=== PATIENT | male | born 1985 | race African-American/Black ===

== ENCOUNTER 2017-07-28 20:19 | Emergency (ER) | payer MEDICARE, MEDICAID, SELFPAY ==
[2017-07-28 20:27] VITALS: BP 143/84; PULSE 78; RESP 16; TEMP 36.7; O2SAT 98; BMI 39.5
--- NOTE | 2017-07-28 20:56 | DI.RAD.S_ITS ---
PROCEDURE: XR CHEST 2V INDICATIONS: left lower anterior chest pain TECHNIQUE: 2 views of the chest were acquired. COMPARISON: [facility], CHEST 2 VIEW, 04/26/2013, 6:03. [facility], , CHEST FOR PICC PLACEMENT, 06/20/2012, 17:03. FINDINGS: Surgical changes and devices: None. Lungs and pleura: Trace pleural effusions. No pneumothorax. Lungs are clear. Mediastinum: Mediastinal contours are normal. Heart size is normal. Bones and chest wall: No suspicious bony abnormalities. Soft tissues appear unremarkable. IMPRESSION: Trace pleural effusions. Otherwise, no radiographic evidence of acute cardiopulmonary pathology. Dictated by: Andres Huston M.D. on 07/28/2017 at 21:57 Approved by: Andres Huston M.D. on 07/28/2017 at 21:58
[2017-07-28 21:14] LABS: Add Manual Diff / Slide Review NO; Basophils Percent Auto 0.9 % (0-2); Eosinophils Percent Auto 1.3 % (2-4); Hematocrit 41.1 % (41-53); Lymphocytes Percent Auto 33.3 % (25-40); Mean Corpuscular Hemoglobin 31.9 PG (26-34); Mean Corpuscular Volume 93.7 fL (80-100); Monocytes Percent Auto 7.5 % (3-14); Neutrophils Absolute Auto 3900 /uL (3000-5900); Platelet Count 263 X10^3/uL (150-400); Red Blood Cell Count 4.39 X10^6/uL (4.5-5.9); White Blood Cell Count 6.9 X10^3/uL (4.5-11.0)
[2017-07-28 21:25] LABS: D Dimer 242 ng/mL (<231)
[2017-07-28 21:27] LABS: Alanine Aminotransferase 31 IU/L (21-72); Albumin 3.8 g/dL (3.5-5.0); Albumin Globulin Ratio 1.1 (1.0-2.8); Alkaline Phosphatase 62 U/L (38-126); Aspartate Aminotransferase 29 IU/L (17-59); BUN Creatinine Ratio 21.4 (6-22); Bilirubin Total 0.5 mg/dL (0.2-1.3); Calcium 8.6 mg/dL (8.4-10.2); Estimated Glomerular Filt Rate > 60.0 mL/min (>60); Globulin 3.4 g/dL (1.7-4.1); Glucose 96 mg/dL (70-100); HEMOLYSIS 16 (0-50); Lipase 206 U/L (23-300); Potassium 3.9 mmol/L (3.4-5.1); Sodium 140 mmol/L (137-145); Total Protein 7.2 g/dL (6.3-8.2)
--- NOTE | 2017-07-28 21:34 | DI.CT.S_ITS ---
PROCEDURE: CT ANGIO CHEST PE PROTOCOL INDICATIONS: left lower chest pain with elevated d-dimer and right lower extremity in splint TECHNIQUE: After the administration of intravenous contrast, 2 mm thick sections acquired from the pulmonary apices to the posterior costophrenic angles. 3-dimensional maximum intensity projection (MIP) coronal and sagittal reformats were then acquired through the thorax. For radiation dose reduction, the following was used: automated exposure control, adjustment of mA and/or kV according to patient size. COMPARISON: None. FINDINGS: Image quality: Excellent. Pulmonary arteries: Pulmonary arteries are normal in size, and demonstrate no intraluminal filling defects to suggest central pulmonary embolism. Lungs and pleura: No acute consolidation however patchy and ill-defined left perihilar and lower lobe opacities are present with groundglass appearance. Presumed calcified granuloma in the anterolateral left upper lobe. Mediastinum: Heart size is normal, and there is a mild pericardial effusion. There are shotty mediastinal lymph nodes without pathologic mediastinal or hilar adenopathy. Thoracic aorta is normal in caliber and enhancement. Esophagus is normal in caliber, without hiatal hernia. Bones and chest wall: No suspicious bony lesions. Ribs and thoracic spine appear intact throughout. Thyroid gland unremarkable. No axillary or supraclavicular adenopathy. Abdomen: Visualized upper abdominal solid organs appear normal in the early arterial phase of enhancement. Postsurgical changes at the GE junction. IMPRESSION: No evidence of pulmonary embolism. Patchy ill-defined nodular and groundglass opacities involving the left perihilar and left lower lobe region probably reflective of low-grade bronchopneumonia. Small pericardial effusion. Recommend clinical correlation Dictated by: Quincy Levin M.D. on 07/29/2017 at 7:30 Approved by: Quincy Levin M.D. on 07/29/2017 at 7:39
[2017-07-28 21:43] LABS: Troponin I < 0.012 ng/mL (0.01-0.034)
[2017-07-28 22:02] VITALS: BP 110/65; PULSE 59; RESP 15; O2SAT 99
[2017-07-28 23:27] VITALS: BP 98/65; PULSE 58; RESP 14; O2SAT 100
--- NOTE | 2017-07-29 01:37 | ED_ITS ---
HPI - Abdominal Pain General Chief Complaint: Abdominal Pain Stated Complaint: ABDOMINAL PAIN, DIFFICULTY BREATHING Time Seen by Provider: 07/28/17 20:21 History of Present Illness HPI narrative: HPI 32-year-old male with 4 days of afebrile mildly productive cough presents with left lower anterior chest pain is worsened with palpation and deep inspiration; recent history notable for a right foot fracture in a walking boot. Denies ankle or calf swelling, calf pain, or shortness breath. Patient notes continues taking ibuprofen for his foot fracture, denies burning epigastric pain. Currently asymptomatic except when twisting or taking a deep breath. Patient denies recent immobilization, leg trauma, estrogen use, surgery in the last four weeks, hemoptysis, or malignancy in the last 6 months. M/S/F/SocHx notable for: gastric bypass; remainder reviewed with patient and in chart. ROS: Negative constitutional, eye, cardiovascular, pulmonary, GI, , MSK, skin , neurologic, psychiatric, endocrine unless noted in the HPI. Exam Gen: Pleasant, non-toxic appearing, resting comfortably. HEENT: NC, AT, PEERL, EOMI. Resp: Clear to auscultation bilaterally, normal work of breathing. Card: RRR with no M/R/G, no crackles in lung bases, no pedal edema, no JVD appreciated. GI: NT/ND Vascular: Both ankles, calves, and thighs of equal size, no calf tenderness to palpation bilaterally. MSK: Mild chest wall TTP. RLE and a walking boot. Otherwise, no visible deformities, strength and tone WNL. Skin: Normal color with no visible lesions. Neuro: AO x 3, no facial asymmetry, vision and hearing WNL. Psych: Mood and affect appropriate. Labs / Imaging (pertinent): WBC 6.9, Hb 14.0, Na 140, K 3.9, lipase 286. Troponin < 0.012 d-dimer 242 EKG: SR at 64 bpm, no MI segment depressions, no new ST segment changes, new LBBB, or T-wave changes that would suggest acute ischemia. CXR: trace pleural effusion. Otherwise no radiographic evidence of acute cardiopulmonary pathology. CTA chest: no evidence of pulmonary embolism or aortic aneurysm or dissection. Multifocal small ill-defined opacities in the medial left upper and lower lobe, suspicious for mild acute pneumonitis. Subcentimeter small nodule in superior segment left lower lobe is probably small nodule infiltrate. No focal complement of your infiltrate. Old granulomatous disease. Gastric bypass. MDM Previous chart, nursing note, and vitals reviewed. A: 32-year-old male with 4 days of afebrile mildly productive cough presents with left lower anterior chest pain is worsened with palpation and deep inspiration; recent history notable for a right foot fracture in a walking boot. DDx and Evaluation: strongly suspect Costocondritis (given reproducibility of pain at the costochondral margin) as well as a viral pneumonitis, vitals, duration symptoms, and labs are without evidence of a bacterial pneumonia. Recommend PCP follow-up in 48 hours for repeat evaluation. Return to care precautions provided. Also considered and felt to be excluded: * ACS - doubt ACS given a non-ischemic EKG and a negative troponin greater than six hours from maximal symptom onset. * UA - unlikely given the atypical history and alternate diagnosis. * Pericarditis - consider pericarditis unlikely given the lack of MI segment depressions as well as the absence of diffuse ST-segment elevations, lack of reduction of pain when supine, and lack of a friction rub. * Myocarditis - unlikely given the negative troponin and an EKG without characteristic MI-segment or ST-segment changes. * Dissection -no evidence by imaging. * PE - no evidence by imaging. * Mediastinal Air - no evidence by imaging. * Pneumothorax - no evidence by imaging. * Endocarditis - no identifiable risk factors, patient afebrile, no new murmurs appreciated on exam; doubt. Disposition: Discharge with PCP follow up. Return to care precautions given verbally and in writing. Instructed to use NSAIDs for pain control. Impression: pneumonitis, costocondritis (please reference below for remainder of encounter information) Related Data Previous Rx's Medication Instructions Recorded Disabled Parking Permit dev #1 11/08/16 azithromycin 250 mg tablet 250 mg PO DAILY 5 Days #6 tab 07/25/17 benzonatate 100 mg capsule 100 mg PO TID PRN #30 cap 07/25/17 Allergies Allergy/AdvReac Type Severity Reaction Status Date / Time banana [BANANA] Allergy Severe DIFFICULTY Verified 07/28/17 20:30 BREATHING Cephalosporins Allergy Severe STOPPED Verified 07/28/17 20:30 [CEPHALOSPORINS] BREATHING NSAIDS (Non-Steroidal AdvReac Severe Has had Verified 07/28/17 20:30 Anti-Inflamma Bariatric [NSAIDS (NON-STEROIDAL Surgery ANTI-INFLAMMA] PFSH Social History Smoking Status: Former smoker Exam Initial Vital Signs Initial Vital Signs: Vital Signs Temperature 98.1 F 07/28/17 20:27 Pulse Rate 78 07/28/17 20:27 Respiratory Rate 16 07/28/17 20:27 Blood Pressure 143/84 H 07/28/17 20:27 Pulse Oximetry 98 07/28/17 20:27 Course Orders Ordered: ED Orders 07/28/17 20:56 XR chest 2V Stat EKG-12 Lead Stat 07/28/17 21:05 Complete Blood Count AUTO DIFF Stat Comprehensive Metabolic Panel Stat D Dimer Stat Lipase Stat Troponin I Stat 07/28/17 21:34 CT angio chest PE protocol Stat Vital Signs - 8 hr 07/28/17 20:27 07/28/17 22:02 07/28/17 23:27 Temperature 98.1 F Pulse Rate 78 59 L 58 L Respiratory Rate 16 15 14 Blood Pressure 143/84 H Blood Pressure [Right Arm] 110/65 98/65 Pulse Oximetry 98 99 100 MDM - Abdominal Pain Lab Data Result diagrams: 07/28/17 21:05 07/28/17 21:05 Lab Results 07/28/17 07/28/17 07/28/17 Range/Units 21:05 21:05 21:05 WBC 6.9 (4.5-11.0) X10^3/uL RBC 4.39 L (4.5-5.9) X10^6/uL Hgb 14.0 (13.5-17.5) g/dL Hct 41.1 (41-53) % MCV 93.7 (80-100) fL MCH 31.9 (26-34) PG MCHC 34.0 (30-36) % RDW 15.0 H (11.6-14.8) % Plt Count 263 (150-400) X10^3/uL Neut % (Auto) 57.0 (50-75) % Lymph % (Auto) 33.3 (25-40) % [place] % (Auto) 7.5 (3-14) % Eos % (Auto) 1.3 L (2-4) % Baso % (Auto) 0.9 (0-2) % Neut # (Auto) 3900 (1381-8378) /uL D-Dimer 242 H (<231) ng/mL Sodium 140 (137-145) mmol/L Potassium 3.9 (3.4-5.1) mmol/L Chloride 103.0 (98-107) mmol/L Carbon Dioxide 26.0 (22-32) mmol/L BUN 15.0 (9-20) mg/dL Creatinine 0.70 (0.66-1.25) mg/dL Estimated GFR > 60.0 (>60) mL/min BUN/Creatinine Ratio 21.4 (6-22) Glucose 96 (70-100) mg/dL Calcium 8.6 (8.4-10.2) mg/dL Total Bilirubin 0.5 (0.2-1.3) mg/dL AST 29 (17-59) IU/L ALT 31 (21-72) IU/L Alkaline Phosphatase 62 (38-126) U/L Troponin I < 0.012 (0.01-0.034) ng/mL Total Protein 7.2 (6.3-8.2) g/dL Albumin 3.8 (3.5-5.0) g/dL Globulin 3.4 (1.7-4.1) g/dL Albumin/Globulin Ratio 1.1 (1.0-2.8) Lipase 206 (23-300) U/L Discharge Plan Departure Prescriptions: No Action azithromycin [Zithromax] 250 mg tablet 250 mg PO DAILY 5 Days Qty: 6 RF: 0 benzonatate [Tessalon Perles] 100 mg capsule 100 mg PO TID PRN (Reason: cough) Qty: 30 RF: 0 Disabled Parking Permit Qty: 1 RF: 0
[2017-07-29 01:53] VITALS: BP 134/80; PULSE 65; RESP 18
[2017-07-29 01:54] VITALS: BP 134/80; PULSE 61; RESP 15; O2SAT 99
== END 2017-07-29 01:55 | disposition home or self-care (01) ==
PROVIDERS: Emergency Provider Emergency Medicine; Family Provider Physician Assistant; PCP Physician Assistant
DX: J18.9 Pneumonia, unspecified organism (principal); M94.0 Chondrocostal junction syndrome [Tietze]
CPT/HCPCS: 71046; 71275; 80053; 83690; 84484; 85025; 85379; 93005; 99283; 99285; Q9967

== ENCOUNTER → 2017-08-30 10:13 | Outpatient (CLI) | payer MEDICARE, MEDICAID, SELFPAY ==
[2017-08-30 11:39] LABS: Thyroid Stimulating Hormone 1.49 uIU/mL (0.47-4.68)
[2017-08-30 11:59] LABS: Vitamin B12 341 pg/mL (239-931)
[2017-09-02 18:44] LABS: 1 25 Dihydroxy Vitamin D 44 pg/mL (18-72)
[2017-09-03 06:53] LABS: Albumin 4.2 g/dL (3.6-5.1); Sex Hormone Binding Globulin 48 nmol/L (10-50); Testosterone, Bioavailable 114.2 ng/dL (110.0-575.0); Testosterone, Total 587 ng/dL (250-1100); Testosterone,Free 59.3 pg/mL (46.0-224.0)
== END ==
PROVIDERS: PCP Physician Assistant; Visit Provider Physician Assistant
DX: N52.9 Male erectile dysfunction, unspecified (principal); Z98.84 Bariatric surgery status; S92.25 Fracture of navicular [scaphoid] of foot; M87.9 Osteonecrosis, unspecified; E66.9 Obesity, unspecified; E55.9 Vitamin D deficiency, unspecified
CPT/HCPCS: 82040; 82607; 82652; 84270; 84403; 84443

== ENCOUNTER 2017-12-13 05:46 | Emergency (ER) | payer MEDICARE, MEDICAID, SELFPAY ==
[2017-12-13 06:02] VITALS: BP 149/87; PULSE 62; RESP 18; TEMP 36.7; O2SAT 100; BMI 39.5
--- NOTE | 2017-12-13 06:24 | ED_ITS ---
HPI - Abdominal Pain General Chief Complaint: Abdominal Pain Stated Complaint: severe pain lower right stomach area Time Seen by Provider: 12/13/17 05:55 Source: patient Mode of arrival: ambulatory Limitations: no limitations History of Present Illness HPI narrative: This is a 32-year-old male who comes to the emergency department with complaint of right lower abdominal pain. Patient states it started yesterday. He states that it pre would rather suddenly very severe and sharp. It was a 10/10 but has since abated. He dressed scribe's it is waxing and waning in intensity. He denies any flank or back pain. He states the pain is all in the front of the abdomen. He is not able to reproduce it with palpation. Patient states that when the pain was at its worst he was dry heaving, he does not feel nauseated any more. He denies any fevers. He denies any diarrhea or constipation and states he is having normal bowel movements. He has not had any new urinary issues. He does have a history significant for gastric sleeve. Related Data Home Medications Medication Instructions Recorded Confirmed Calcium See Label Instructions .ROUTE 11/03/17 11/03/17 .COMPLEX Hydrochlorothiazide See Label Instructions .ROUTE 11/03/17 11/03/17 .COMPLEX Metamucil See Label Instructions .ROUTE 11/03/17 11/03/17 .COMPLEX Multivitamin See Label Instructions .ROUTE 11/03/17 11/03/17 .COMPLEX Potassium Chloride See Label Instructions .ROUTE 11/03/17 11/03/17 .COMPLEX Therapy Dog See Label Instructions .ROUTE 11/03/17 11/03/17 .COMPLEX Tums 750 mg See Label Instructions .ROUTE 11/03/17 11/03/17 .COMPLEX Vitamin B-12 See Label Instructions .ROUTE 11/03/17 11/03/17 .COMPLEX Vitamin D3 See Label Instructions .ROUTE 11/03/17 11/03/17 .COMPLEX Voltaren Gel 1% See Label Instructions .ROUTE 11/03/17 11/03/17 .COMPLEX Zyrtec See Label Instructions .ROUTE 11/03/17 11/03/17 .COMPLEX Previous Rx's Medication Instructions Recorded Disabled Parking Permit #1 ea 11/02/17 ibuprofen 800 mg tablet 800 mg PO BEDTIME #30 tab 11/21/17 omeprazole 20 mg capsule,delayed 20 mg PO DAILY #60 cap 12/06/17 release clindamycin phosphate 1 % topical 1 applictn TOP BID #240 ml 12/13/17 solution hydrocodone-acetaminophen 1 tab PO Q6H PRN #10 tab 12/13/17 ondansetron [Zofran ODT] 4 mg PO Q6H PRN #14 tab 12/13/17 Allergies Allergy/AdvReac Type Severity Reaction Status Date / Time banana [BANANA] Allergy Severe DIFFICULTY Verified 11/02/17 11:12 BREATHING Cephalosporins Allergy Severe STOPPED Verified 11/02/17 11:12 [CEPHALOSPORINS] BREATHING NSAIDS (Non-Steroidal AdvReac Severe Has had Verified 11/02/17 11:12 Anti-Inflamma Bariatric [NSAIDS (NON-STEROIDAL Surgery ANTI-INFLAMMA] Review of Systems Review of Systems All systems reviewed & are unremarkable except as noted in HPI and below Constitutional Denies fever(s) and Denies night sweats Cardiovascular Denies chest pain, Denies irregular heart rhythm, Denies lightheadedness, Denies palpitations, Denies dyspnea, Denies dyspnea on exertion and Denies orthopnea Respiratory Denies cough, Denies dyspnea, Denies dyspnea on exertion and Denies wheezing Gastrointestinal Gastrointestinal: Reports abdominal pain (Right lower quadrant), Denies change in bowel habits, Denies constipation, Denies diarrhea, Denies nausea and Denies vomiting Genitourinary Denies hematuria, Denies flank pain, Denies urinary incontinence and Denies urinary urgency Musculoskeletal Denies back pain Endocrine Denies palpitations Allergic/Immunologic Denies wheezing PFSH Medical History Hypertension (Chronic Unknown) Knee pain, left (Chronic Unknown) Sleep apnea (Chronic Unknown) Vitamin D deficiency (Chronic Unknown) Surgical History History of gastric bypass Social History Smoking Status: Former smoker Tobacco: How many years used: 1 second hand exposure: No alcohol intake: current (Once a week maybe) substance use type: does not use Exam Initial Vital Signs Initial Vital Signs: Vital Signs Temperature 98.1 F 12/13/17 06:02 Pulse Rate 62 12/13/17 06:02 Respiratory Rate 18 12/13/17 06:02 Blood Pressure 149/87 H 12/13/17 06:02 Pulse Oximetry 100 12/13/17 06:02 GENERAL: Alert and oriented x three, well nourished, well-appearing male in mild distress. HEENT: Head normocephalic, atraumatic, EOMI, pupils reactive, face symmetric, moist mucous membranes NECK: Supple, full range of motion CARDIOVASCULAR: Regular rate and rhythm without murmurs, rubs or gallops. RESPIRATORY: Breath sounds equal bilaterally, no wheezes rales or rhonchi. ABDOMEN: Soft, nontender. Normoactive bowel sounds all 4 quadrants. No guarding or rebound, rigidity, no mass. Patient has excess skin at pannus. : No CVA tenderness EXTREMITIES: Normal range of motion, no clubbing or edema. Neurovascularly intact NEUROLOGICAL: Cranial nerves II through XII grossly intact. Moving all extremities SKIN: Warm, dry, no petechiae, no rashes or lesions. Course Orders Ordered: Discontinued Medications Sodium Chloride (Normal Saline 0.9%) 1,000 mls @ 1,000 mls/hr IV BOLUS ONE Stop: 12/13/17 07:08 Last Infusion: 12/13/17 07:29 Dose: 0 mls/hr Admin: 12/13/17 06:25 Dose: 1,000 mls/hr Vital Signs - 8 hr 12/13/17 06:02 Temperature 98.1 F Pulse Rate 62 Respiratory Rate 18 Blood Pressure 149/87 H Pulse Oximetry 100 MDM - Abdominal Pain Differential Diagnosis Differential diagnosis: Likely abdominal pain, acute appendicitis, calculus of kidney, constipation, diverticulitis and other Lab Data Result diagrams: 12/13/17 06:15 12/13/17 06:15 Lab Results 12/13/17 12/13/17 Range/Units 06:15 06:15 WBC 4.7 (4.5-11.0) X10^3/uL RBC 4.12 L (4.5-5.9) X10^6/uL Hgb 13.7 (13.5-17.5) g/dL Hct 39.9 L (41-53) % MCV 96.8 (80-100) fL MCH 33.2 (26-34) PG MCHC 34.3 (30-36) % RDW 14.2 (11.6-14.8) % Plt Count 274 (150-400) X10^3/uL Neut % (Auto) 57.1 (50-75) % Lymph % (Auto) 29.6 (25-40) % [place] % (Auto) 9.0 (3-14) % Eos % (Auto) 3.7 (2-4) % Baso % (Auto) 0.6 (0-2) % Neut # (Auto) 2700 L (5638-2252) /uL Sodium 140 (137-145) mmol/L Potassium 3.6 (3.4-5.1) mmol/L Chloride 103 (98-107) mmol/L Carbon Dioxide 30 (22-32) mmol/L BUN 17 (9-20) mg/dL Creatinine 0.80 (0.66-1.25) mg/dL Estimated GFR > 60.0 (>60) mL/min BUN/Creatinine Ratio 21.3 (6-22) Glucose 86 (70-100) mg/dL Calcium 8.5 (8.4-10.2) mg/dL Total Bilirubin 0.8 (0.2-1.3) mg/dL AST 43 (17-59) IU/L ALT 23 (21-72) IU/L Alkaline Phosphatase 59 (38-126) U/L Total Protein 7.0 (6.3-8.2) g/dL Albumin 3.8 (3.5-5.0) g/dL Globulin 3.2 (1.7-4.1) g/dL Albumin/Globulin Ratio 1.2 (1.0-2.8) Lipase 104 (23-300) U/L Point of care testing: Urine Dip Bedside Urine Glucose Negative Bedside Urine Bilirubin - Negative Bedside Urine Ketone - Negative Urine Specific [place] 1.015 Bedside Urine Occult Blood - Negative Bedside Urine pH 6.0 Bedside Urine Protein - Negative Bedside Urine Urobilinogen - Negative Bedside Urine Nitrite - Negative Bedside Urine Leukocytes - Negative Esterase MDM Narrative Medical decision making narrative: Labs and imaging pending, patient signed out to Dr. Mckoen. Discharge Plan Departure Patient Disposition: Home Clinical Impression: Abdominal pain Discharge Date/Time: 12/13/17 10:00 Interventions: ED Discharge Assessment Last Done: 12/13/17 10:00 Instructions: DI for Abdominal Pain-Adult, DI for Biliary Colic Activity Restrictions/Additional Instructions: Your CT scan showed gallstones, but otherwise looked good. Your labs were normal. Your gallstones are most likely the cause your pain, and you should follow-up with the surgery Clinic for further evaluation, and to discuss your options. Prescriptions: New hydrocodone-acetaminophen 5-325 mg tablet 1 tab PO Q6H PRN (Reason: abdominal pain) Qty: 10 RF: 0 ondansetron [Zofran ODT] 4 mg tablet,disintegrating 4 mg PO Q6H PRN (Reason: nausea and vomiting) Qty: 14 RF: 0 No Action Disabled Parking Permit .Route .MEDSUPPLY Qty: 1 RF: 0 Vitamin B-12 See Patient Comments .ROUTE .COMPLEX RF: 0 Vitamin D3 See Patient Comments .ROUTE .COMPLEX RF: 0 Calcium See Patient Comments .ROUTE .COMPLEX RF: 0 Tums 750 mg See Patient Comments .ROUTE .COMPLEX RF: 0 Zyrtec See Patient Comments .ROUTE .COMPLEX RF: 0 Voltaren Gel 1% See Patient Comments .ROUTE .COMPLEX RF: 0 Hydrochlorothiazide See Patient Comments .ROUTE .COMPLEX RF: 0 Multivitamin See Patient Comments .ROUTE .COMPLEX RF: 0 Potassium Chloride See Patient Comments .ROUTE .COMPLEX RF: 0 Therapy Dog See Patient Comments .ROUTE .COMPLEX RF: 0 Metamucil See Patient Comments .ROUTE .COMPLEX RF: 0 ibuprofen 800 mg tablet 800 mg PO BEDTIME Qty: 30 RF: 3 omeprazole 20 mg capsule,delayed release(DR/EC) 20 mg PO DAILY Qty: 60 RF: 3 clindamycin phosphate 1 % solution 1 applictn TOP BID Qty: 240 RF: 3 Referrals: [facility] [Provider Group] ( Please follow up within the next week to have further evaluation of your gallstones.) Vivien Moralez PA-C [Primary Care Provider] -
[2017-12-13] MEDS: SODIUM CHLORIDE 0.9% 1,000 ML 1000 ML IV (06:25)
[2017-12-13 06:34] LABS: Add Manual Diff / Slide Review NO; Basophils Percent Auto 0.6 % (0-2); Eosinophils Percent Auto 3.7 % (2-4); Hematocrit 39.9 % (41-53); Hemoglobin 13.7 g/dL (13.5-17.5); Lymphocytes Percent Auto 29.6 % (25-40); Mean Corpuscular HGB Conc 34.3 % (30-36); Mean Corpuscular Hemoglobin 33.2 PG (26-34); Mean Corpuscular Volume 96.8 fL (80-100); Neutrophils Absolute Auto 2700 /uL (3000-5900); Neutrophils Percent Auto 57.1 % (50-75); Platelet Count 274 X10^3/uL (150-400); Red Blood Cell Count 4.12 X10^6/uL (4.5-5.9); Red Cell Distribution Width 14.2 % (11.6-14.8); White Blood Cell Count 4.7 X10^3/uL (4.5-11.0)
[2017-12-13 06:41] LABS: Alanine Aminotransferase 23 IU/L (21-72); Albumin 3.8 g/dL (3.5-5.0); Albumin Globulin Ratio 1.2 (1.0-2.8); Alkaline Phosphatase 59 U/L (38-126); Aspartate Aminotransferase 43 IU/L (17-59); BUN Creatinine Ratio 21.3 (6-22); Bilirubin Total 0.8 mg/dL (0.2-1.3); Blood Urea Nitrogen 17 mg/dL (9-20); Calcium 8.5 mg/dL (8.4-10.2); Carbon Dioxide 30 mmol/L (22-32); Chloride 103 mmol/L (98-107); Estimated Glomerular Filt Rate > 60.0 mL/min (>60); Globulin 3.2 g/dL (1.7-4.1); Glucose 86 mg/dL (70-100); HEMOLYSIS < 15 (0-50); Lipase 104 U/L (23-300); Potassium 3.6 mmol/L (3.4-5.1); Sodium 140 mmol/L (137-145)
[2017-12-13 07:18] VITALS: BP 155/92; PULSE 57; RESP 15; O2SAT 97
--- NOTE | 2017-12-13 07:29 | DI.CT.S_ITS ---
PROCEDURE: CT ABDOMEN PELVIS W CON INDICATIONS: RLQ abdominal pain, vomited, hx gastric sleeve TECHNIQUE: After the administration of intravenous contrast, 5 mm thick sections acquired from the diaphragm to the symphysis. 5 mm coronal and sagittal reformats were acquired. For radiation dose reduction, the following was used: automated exposure control, adjustment of mA and/or kV according to patient size. COMPARISON: [facility], CT, CT ANGIO CHEST PE PROTOCOL, 07/28/2017, 22:08. FINDINGS: Image quality: Excellent. ABDOMEN: Lung bases: Lung bases are clear. Heart size is normal. There is trace pericardial effusion. Tiny hiatal hernia. Solid organs: Liver is normal in size and demonstrates a subtle nodular contour. Gallbladder contains calcified gallstones. Biliary system is non dilated. Pancreas enhances normally. Spleen is normal in size and enhancement. No adrenal nodules. Kidneys demonstrate normal size and enhancement, without hydronephrosis. Peritoneum and bowel: The postsurgical changes in stomach with gastric bypass. Appendix is normal. Bowel loops demonstrate normal wall thickness and caliber. No free fluid or air. Nodes and vessels: No retroperitoneal or mesenteric adenopathy by size criteria. Aorta and inferior vena cava are normal in size. Miscellaneous: No ventral hernias. PELVIS: Genitourinary: Bladder wall thickness is normal. Miscellaneous: No inguinal hernias or adenopathy. Bones: No suspicious bony lesions. No vertebral body compression fractures. IMPRESSION: 1. Normal appendix. 2. Postsurgical changes related to gastric bypass. 3. Cholelithiasis. 4. Liver demonstrates a subtle nodular contour. Please correlate with liver enzymes. Dictated by: Susan Willoughby M.D. on 12/13/2017 at 8:20 Approved by: Susan Willoughby M.D. on 12/13/2017 at 8:26
[2017-12-13 08:47] VITALS: BP 159/99; PULSE 61; RESP 16; O2SAT 100
[2017-12-13 09:46] VITALS: BP 148/98; PULSE 67; RESP 18; O2SAT 100
--- NOTE | 2017-12-14 19:08 | ED_ITS ---
HPI - Abdominal Pain General Chief Complaint: Abdominal Pain Stated Complaint: severe pain lower right stomach area Time Seen by Provider: 12/13/17 05:55 Source: patient Mode of arrival: ambulatory Limitations: no limitations History of Present Illness HPI narrative: Patient complains of right-sided abdominal pain. He states that this current episode began in the middle of. He states he is feeling a little better but was quite bad when 1st started. He rates his pain at that time a 9/ 10; now he states it about a 4/10. Patient states he has had other episodes of pain like this but has not been as bad. He states that episodes have been lasting longer and longer lately. He denies fevers he has felt nauseated. He has also been having intermittent episodes of indigestion. Patient has a history of a gastric bypass surgery, but is otherwise healthy. MD complaint: abdominal pain Onset (ago): hour(s) Pain Consistency: constant Quality: stabbing Radiation: none Relieving factors: nothing Exacerbating factors: nothing Context: other (See above) Associated symptoms: nausea and other (No fever or chills, no dysuria.) Related Data Home Medications Medication Instructions Recorded Confirmed Calcium See Label Instructions .ROUTE 11/03/17 11/03/17 .COMPLEX Hydrochlorothiazide See Label Instructions .ROUTE 11/03/17 11/03/17 .COMPLEX Metamucil See Label Instructions .ROUTE 11/03/17 11/03/17 .COMPLEX Multivitamin See Label Instructions .ROUTE 11/03/17 11/03/17 .COMPLEX Potassium Chloride See Label Instructions .ROUTE 11/03/17 11/03/17 .COMPLEX Therapy Dog See Label Instructions .ROUTE 11/03/17 11/03/17 .COMPLEX Tums 750 mg See Label Instructions .ROUTE 11/03/17 11/03/17 .COMPLEX Vitamin B-12 See Label Instructions .ROUTE 11/03/17 11/03/17 .COMPLEX Vitamin D3 See Label Instructions .ROUTE 11/03/17 11/03/17 .COMPLEX Voltaren Gel 1% See Label Instructions .ROUTE 11/03/17 11/03/17 .COMPLEX Zyrtec See Label Instructions .ROUTE 11/03/17 11/03/17 .COMPLEX Previous Rx's Medication Instructions Recorded Disabled Parking Permit #1 ea 11/02/17 ibuprofen 800 mg tablet 800 mg PO BEDTIME #30 tab 11/21/17 omeprazole 20 mg capsule,delayed 20 mg PO DAILY #60 cap 12/06/17 release clindamycin phosphate 1 % topical 1 applictn TOP BID #240 ml 12/13/17 solution hydrocodone-acetaminophen 1 tab PO Q6H PRN #10 tab 12/13/17 ondansetron [Zofran ODT] 4 mg PO Q6H PRN #14 tab 12/13/17 Allergies Allergy/AdvReac Type Severity Reaction Status Date / Time banana [BANANA] Allergy Severe DIFFICULTY Verified 11/02/17 11:12 BREATHING Cephalosporins Allergy Severe STOPPED Verified 11/02/17 11:12 [CEPHALOSPORINS] BREATHING NSAIDS (Non-Steroidal AdvReac Severe Has had Verified 11/02/17 11:12 Anti-Inflamma Bariatric [NSAIDS (NON-STEROIDAL Surgery ANTI-INFLAMMA] Review of Systems Review of Systems All systems reviewed & are unremarkable except as noted in HPI and below Constitutional Denies chills, Denies fever(s), Denies lethargy and Denies weakness Eyes Denies change in vision, Denies eye discharge, Denies irritation and Denies loss of vision ENT Ears, Nose, Mouth, and Throat: Denies change in voice, Denies neck pain and Denies sore throat Cardiovascular Denies chest pain, Denies irregular heart rhythm, Denies lightheadedness, Denies palpitations, Denies dyspnea, Denies dyspnea on exertion and Denies orthopnea Respiratory Denies cough, Denies dyspnea, Denies dyspnea on exertion and Denies wheezing Gastrointestinal Gastrointestinal: Reports abdominal pain, Denies change in bowel habits, Denies diarrhea, Reports nausea and Denies vomiting Genitourinary Denies hematuria, Denies flank pain, Denies urinary incontinence and Denies urinary urgency Musculoskeletal Denies neck pain Integumentary/Breasts Denies pruritus, Denies erythema, Denies rash and Denies wounds Neurologic Denies confusion, Denies loss of vision and Denies weakness Psychiatric Denies anxiety, Denies confusion, Denies depression, Denies homicidal ideation and Denies suicidal ideation Endocrine Denies palpitations Hematologic/Lymphatic Denies easy bruising Allergic/Immunologic Denies wheezing PFSH Medical History Hypertension (Chronic Unknown) Knee pain, left (Chronic Unknown) Sleep apnea (Chronic Unknown) Vitamin D deficiency (Chronic Unknown) Surgical History History of gastric bypass Social History Smoking Status: Former smoker Tobacco: How many years used: 1 second hand exposure: No alcohol intake: current (Once a week maybe) substance use type: does not use Exam Initial Vital Signs Initial Vital Signs: Vital Signs Temperature 98.1 F 12/13/17 06:02 Pulse Rate 62 12/13/17 06:02 Respiratory Rate 18 12/13/17 06:02 Blood Pressure 149/87 H 12/13/17 06:02 Pulse Oximetry 100 12/13/17 06:02 Const General: cooperative and well developed Nutritional Appearance: well nourished Orientation: alert, awake, oriented x3 and not confused HENMT Head: normocephalic and atraumatic Ears: external ears normal Nose: external nose normal and No nasal discharge Face and sinus: face symmetric and No dry mucous membranes Mouth: oral mucosae normal and moist mucous membranes Teeth and gingiva: dentition normal Eyes General: appearance normal, both eyes and all related structures Eyelids: eyelids normal Conjunctivae: conjunctivae normal Sclera: sclerae normal Pupils: PERRL EOM: EOM intact bilaterally Neck Neck: normal visual inspection, trachea midline, No lymphadenopathy, No midline deformity and No JVD Lymphatic: No lymphedema Chest Chest: normal inspection of the chest Resp Effort & Inspection: normal respiratory effort, able to speak in complete sentences, no respiratory distress and no use of accessory muscles Auscultation: clear to auscultation bilaterally, no rales, no rhonchi and no wheezes Cardio Rate: regular rate Rhythm: regular rhythm Heart Sounds: no click, no gallops, no murmurs and no rubs Pulses: normal peripheral pulses GI Inspection: non-distended Palpation: soft, no hepatosplenomegaly, No guarding, No pulsatile mass and No tender Auscultation: normal bowel sounds Back/Spine/Pelvis Back: No CVA tenderness Cervical Spine: cervical ROM normal and No pain with cervical ROM Thoracic/Lumbar Spine: thoracic and lumbar spine normal to inspection Skin General: no rashes or lesions noted, No jaundice and No petechiae Neuro General: alert, oriented x3, gait normal and no focal motor deficits Speech: speech normal Extrem General: full ROM, no clubbing, cyanosis or edema, no pedal edema and no calf tenderness Psych Appearance: well kempt Mental Status: mental status grossly normal Attitude: cooperative Thought Content: normal and suicidality Judgment: judgment good Course Course Narrative: Patient was signed out to me by Dr. Rousseau at change of shift, pending labs and CT scan. He was treated symptomatically, and found to be feeling better. CT scan showed cholelithiasis, with no evidence of cholecystitis or choledocholithiasis. I did speak with the patient regarding the findings, and his need for surgical follow-up. I discussed with him that most likely, his bouts of pain are secondary to biliary colic. Patient states he will follow up. I have given him prescriptions for symptomatic treatment home. Orders Ordered: Discontinued Medications Sodium Chloride (Normal Saline 0.9%) 1,000 mls @ 1,000 mls/hr IV BOLUS ONE Stop: 12/13/17 07:08 Last Infusion: 12/13/17 07:29 Dose: 0 mls/hr Admin: 12/13/17 06:25 Dose: 1,000 mls/hr Vital Signs - 8 hr 12/13/17 06:02 12/13/17 07:18 12/13/17 08:47 Temperature 98.1 F Pulse Rate 62 57 L 61 Respiratory Rate 18 15 16 Blood Pressure 149/87 H Blood Pressure [Right Arm] 155/92 H 159/99 H Pulse Oximetry 100 97 100 MDM - Abdominal Pain Differential Diagnosis Differential diagnosis: Likely abdominal pain, acute appendicitis, calculus of kidney, constipation and diverticulitis Medical Records Attestation: I reviewed the patient's medical records. Lab Data Attestation: I reviewed the patient's lab results. Result diagrams: 12/13/17 06:15 12/13/17 06:15 Lab Results 12/13/17 12/13/17 Range/Units 06:15 06:15 WBC 4.7 (4.5-11.0) X10^3/uL RBC 4.12 L (4.5-5.9) X10^6/uL Hgb 13.7 (13.5-17.5) g/dL Hct 39.9 L (41-53) % MCV 96.8 (80-100) fL MCH 33.2 (26-34) PG MCHC 34.3 (30-36) % RDW 14.2 (11.6-14.8) % Plt Count 274 (150-400) X10^3/uL Neut % (Auto) 57.1 (50-75) % Lymph % (Auto) 29.6 (25-40) % Ross % (Auto) 9.0 (3-14) % Eos % (Auto) 3.7 (2-4) % Baso % (Auto) 0.6 (0-2) % Neut # (Auto) 2700 L (0303-3489) /uL Sodium 140 (137-145) mmol/L Potassium 3.6 (3.4-5.1) mmol/L Chloride 103 (98-107) mmol/L Carbon Dioxide 30 (22-32) mmol/L BUN 17 (9-20) mg/dL Creatinine 0.80 (0.66-1.25) mg/dL Estimated GFR > 60.0 (>60) mL/min BUN/Creatinine Ratio 21.3 (6-22) Glucose 86 (70-100) mg/dL Calcium 8.5 (8.4-10.2) mg/dL Total Bilirubin 0.8 (0.2-1.3) mg/dL AST 43 (17-59) IU/L ALT 23 (21-72) IU/L Alkaline Phosphatase 59 (38-126) U/L Total Protein 7.0 (6.3-8.2) g/dL Albumin 3.8 (3.5-5.0) g/dL Globulin 3.2 (1.7-4.1) g/dL Albumin/Globulin Ratio 1.2 (1.0-2.8) Lipase 104 (23-300) U/L Point of care testing: Urine Dip Bedside Urine Glucose Negative Bedside Urine Bilirubin - Negative Bedside Urine Ketone - Negative Urine Specific [place] 1.015 Bedside Urine Occult Blood - Negative Bedside Urine pH 6.0 Bedside Urine Protein - Negative Bedside Urine Urobilinogen - Negative Bedside Urine Nitrite - Negative Bedside Urine Leukocytes - Negative Esterase Imaging Data CT scan - abdomen: Attestation: I personally reviewed and interpreted this imaging study as follows: Radiologist's impression: PROCEDURE: CT ABDOMEN PELVIS W CON INDICATIONS: RLQ abdominal pain, vomited, hx gastric sleeve TECHNIQUE: After the administration of intravenous contrast, 5 mm thick sections acquired from the diaphragm to the symphysis. 5 mm coronal and sagittal reformats were acquired. For radiation dose reduction, the following was used: automated exposure control, adjustment of mA and/or kV according to patient size. COMPARISON: [facility], CT, CT ANGIO CHEST PE PROTOCOL, 07/28/2017, 22:08. FINDINGS: Image quality: Excellent. ABDOMEN: Lung bases: Lung bases are clear. Heart size is normal. There is trace pericardial effusion. Tiny hiatal hernia. Solid organs: Liver is normal in size and demonstrates a subtle nodular contour. Gallbladder contains calcified gallstones. Biliary system is non dilated. Pancreas enhances normally. Spleen is normal in size and enhancement. No adrenal nodules. Kidneys demonstrate normal size and enhancement, without hydronephrosis. Peritoneum and bowel: The postsurgical changes in stomach with gastric bypass. Appendix is normal. Bowel loops demonstrate normal wall thickness and caliber. No free fluid or air. Nodes and vessels: No retroperitoneal or mesenteric adenopathy by size criteria. Aorta and inferior vena cava are normal in size. Miscellaneous: No ventral hernias. PELVIS: Genitourinary: Bladder wall thickness is normal. Miscellaneous: No inguinal hernias or adenopathy. Bones: No suspicious bony lesions. No vertebral body compression fractures. IMPRESSION: 1. Normal appendix. 2. Postsurgical changes related to gastric bypass. 3. Cholelithiasis. 4. Liver demonstrates a subtle nodular contour. Please correlate with liver enzymes. Dictated by: Susan Willoughby M.D. on 12/13/2017 at 8:20 Approved by: Susan Willoughby M.D. on 12/13/2017 at 8:26 [facility] Narrative Medical decision making narrative: Patient was deemed stable for discharge home. We have discussed the usual indications for return, as well as symptomatic treatment at home. Discharge Plan Departure Patient Disposition: Home Clinical Impression: Abdominal pain Discharge Date/Time: 12/13/17 10:00 Interventions: ED Discharge Assessment Last Done: 12/13/17 10:00 Instructions: DI for Abdominal Pain-Adult, DI for Biliary Colic Activity Restrictions/Additional Instructions: Your CT scan showed gallstones, but otherwise looked good. Your labs were normal. Your gallstones are most likely the cause your pain, and you should follow-up with the surgery Clinic for further evaluation, and to discuss your options. Prescriptions: New hydrocodone-acetaminophen 5-325 mg tablet 1 tab PO Q6H PRN (Reason: abdominal pain) Qty: 10 RF: 0 ondansetron [Zofran ODT] 4 mg tablet,disintegrating 4 mg PO Q6H PRN (Reason: nausea and vomiting) Qty: 14 RF: 0 No Action Disabled Parking Permit .Route .MEDSUPPLY Qty: 1 RF: 0 Vitamin B-12 See Patient Comments .ROUTE .COMPLEX RF: 0 Vitamin D3 See Patient Comments .ROUTE .COMPLEX RF: 0 Calcium See Patient Comments .ROUTE .COMPLEX RF: 0 Tums 750 mg See Patient Comments .ROUTE .COMPLEX RF: 0 Zyrtec See Patient Comments .ROUTE .COMPLEX RF: 0 Voltaren Gel 1% See Patient Comments .ROUTE .COMPLEX RF: 0 Hydrochlorothiazide See Patient Comments .ROUTE .COMPLEX RF: 0 Multivitamin See Patient Comments .ROUTE .COMPLEX RF: 0 Potassium Chloride See Patient Comments .ROUTE .COMPLEX RF: 0 Therapy Dog See Patient Comments .ROUTE .COMPLEX RF: 0 Metamucil See Patient Comments .ROUTE .COMPLEX RF: 0 ibuprofen 800 mg tablet 800 mg PO BEDTIME Qty: 30 RF: 3 omeprazole 20 mg capsule,delayed release(DR/EC) 20 mg PO DAILY Qty: 60 RF: 3 clindamycin phosphate 1 % solution 1 applictn TOP BID Qty: 240 RF: 3 Referrals: [facility] [Provider Group] ( Please follow up within the next week to have further evaluation of your gallstones.) Vivien Moralez PA-C [Primary Care Provider] -
== END 2017-12-13 10:00 | disposition home or self-care (01) ==
PROVIDERS: Emergency Medicine; Emergency Provider Emergency Medicine; Family Provider Physician Assistant; PCP Physician Assistant
DX: R10.9 Unspecified abdominal pain (principal)
CPT/HCPCS: 36591; 74177; 80053; 81003; 83690; 85025; 96360; 99283; 99285; Q9967

== ENCOUNTER → 2018-05-08 18:08 | Outpatient (CLI) | payer MEDICARE, MEDICAID, SELFPAY ==
[2018-05-08 19:42] LABS: Influenza A and B by PCR Rapid Negative (Negative)
== END ==
PROVIDERS: Family Provider Physician Assistant; PCP Physician Assistant; Visit Provider Physician Assistant
DX: R68.89 Other general symptoms and signs (principal)
CPT/HCPCS: 87400

== ENCOUNTER → 2019-05-21 13:43 | Outpatient (CLI) | payer MEDICARE, OTHER, MEDICAID, SELFPAY ==
[2019-05-21 18:42] LABS: Adenovirus F 40/41 Not Detected (Not Detect); Astrovirus Not Detected (Not Detect); Campylobacter Not Detected (Not Detect); Clostridium difficile toxin AB Not Detected (Not Detect); Cryptosporidium Not Detected (Not Detect); Cyclospora cayetanensis Not Detected (Not Detect); Entamoeba histolytica Not Detected (Not Detect); Enteroaggregative E.coli Not Detected (Not Detect); Enteropathogenic E.coli Not Detected (Not Detect); Enterotoxigenic E.coli It/st Not Detected (Not Detect); Giardia lamblia Not Detected (Not Detect); Norovirus GI/GII Not Detected (Not Detect); Plesiomonsa shigelloides Not Detected (Not Detect); Rotavirus A Not Detected (Not Detect); Salmonella Not Detected (Not Detect); Sapovirus Not Detected (Not Detect); Shiga-like toxin-prod E.coli Not Detected (Not Detect); Shigella/Enteroinvasive E.coli Not Detected (Not Detect); Vibrio Not Detected (Not Detect); Vibrio cholerae Not Detected (Not Detect); Yersinia enterocolitica Not Detected (Not Detect)
== END ==
PROVIDERS: Family Provider Physician Assistant; PCP Physician Assistant; Referring Provider Physician Assistant; Visit Provider Physician Assistant
DX: R10.9 Unspecified abdominal pain (principal); R19.7 Diarrhea, unspecified
CPT/HCPCS: 87507

== ENCOUNTER → 2019-12-22 12:59 | Outpatient (CLI) | payer OTHER, MEDICARE, MEDICAID, SELFPAY ==
--- NOTE | 2019-12-22 | DI.MRI.S_ITS ---
PROCEDURE: MR KNEE LT WO CON INDICATIONS: internal derangement of left knee TECHNIQUE: Noncontrast sagittal PD fast spin echo and T2 fast spin echo with fat saturation, sagittal 3-D FLASH with fat saturation; coronal T1 spin echo and PD fast spin echo with fat saturation, and axial PD fast spin echo with fat saturation through the knee. COMPARISON: [facility], MR, KNEE WITHOUT CONTRAST, 06/18/2016, 10:40. FINDINGS: Image quality: Excellent. Menisci: Truncated appearance of body and posterior horn of medial meniscus suggestive of interval partial meniscectomy versus progression of chronic complex tear. There is signal abnormality within posterior horn medial meniscal remanent extending to both superior and inferior articulating surfaces. Complex tear involving body and posterior horn of lateral meniscus is also seen extending to both superior and inferior articulating surfaces. Peripheral displacement of medial meniscal remanent is seen The meniscal root ligaments appear intact. Cruciate ligaments: Poorly visualized anterior cruciate ligament is again noted suggestive of chronic ACL rupture not significantly changed from prior study. Posterior cruciate ligament is intact. Medial structures: Thickened medial collateral ligament is seen suggestive of moderate grade MCL sprain/partial-thickness tear. 2.2 x 1.1 centimeter complex cyst medial to the proximal medial collateral ligament is seen better defined on the current study compared to 2017 study. The posterior oblique ligament, semimembranosus tendon insertions, oblique popliteal ligament, and meniscocapsular junction appear intact. Visualized portions of the pes anserinus tendons appear normal. No abnormal bursal fluid. Lateral structures: The lateral collateral ligament, long and short heads of the biceps femoris tendon appear intact. The popliteus tendon appears normal; the popliteofibular ligament appears intact. The posterosuperior and anteroinferior popliteomeniscal fascicles appear intact. The arcuate and fabellofibular ligaments appear intact, on either side of the lateral inferior geniculate artery. Iliotibial band appears normal. Anterior structures: The quadriceps and patellar tendons appear intact. Patellar alignment is normal. No femoral trochlear dysplasia or ventral trochlear prominence. No edema in the infrapatellar fat pad. Bones and cartilage: Moderate tricompartmental osteoarthritis is seen more prominent in medial femoral tibial compartment. Chondromalacia in medial and lateral femoral tibial compartments are also seen. Low-grade chondromalacia involving medial facet of patella cartilage is also likely present. Joint space: There is moderate amount of joint fluid. No Nolen's cyst. Normal appearing synovial plicae are incidentally noted. IMPRESSION: 1. 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 PCL is intact. 2. Chronic complex tear involving medial meniscus versus prior partial meniscectomy. There is also suggestion of complex tear involving posterior horn remanent of medial meniscus extending to both superior and inferior articulating surfaces. 3. Suggestion of complex tear involving body and posterior horn of lateral meniscus extending to both superior and inferior articulating surfaces. 4. Moderate tricompartmental osteoarthritis and chondromalacia most prominent in medial femoral tibial compartment. 5. Chronic appearing moderate grade MCL sprain/partial-thickness tear. Adjacent soft tissue cystic area measures 2.2 x 1.1 cm slightly better defined compared to 2017 study. Dictated by: Jorgito Workman M.D. on 12/24/2019 at 8:44 Approved by: Jorgito Workman M.D. on 12/24/2019 at 9:04
== END ==
PROVIDERS: Family Provider Physician Assistant; PCP Physician Assistant; Referring Provider Physician Assistant; Visit Provider Physician Assistant
DX: M23.92 Unspecified internal derangement of left knee (principal); M17.11 Unilateral primary osteoarthritis, right knee; R26.89 Other abnormalities of gait and mobility; M94.262 Chondromalacia, left knee
CPT/HCPCS: 73721

== ENCOUNTER 2020-09-30 00:31 | Emergency (ER) | payer OTHER, MEDICARE, MEDICAID, SELFPAY ==
[2020-09-30 00:46] VITALS: BP 143/94; PULSE 77; RESP 16; TEMP 36; O2SAT 99; BMI 34.1
--- NOTE | 2020-09-30 02:26 | ED.BACK ---
HPI - Back Pain/Injury General Chief Complaint: Back Pain/Injury Stated Complaint: Severe back and leg pain on left side Time Seen by Provider: 09/30/20 02:25 Source: patient Limitations: no limitations History of Present Illness HPI Narrative: This is a 35-year-old male who comes emergency department complaint of 2 weeks low back pain which has min radiating into his left lower leg. Patient states the comes into his buttock, upper thigh and groin and down to the knee. Patient has also noticed some sensation change in that area as well. He denies any numbness. He denies any weakness. He denies any saddle anesthesia. Patient states he has been able to move his leg, both legs normally. Patient has not had similar symptoms in the past. He did not have any recent trauma or injuries. He denies any fevers. He states he has a history of bariatric surgery and takes hydrochlorothiazide for blood pressure. He does not take any other daily medications. He has seen his primary care soon Kirt who prescribed him gabapentin and he has been taking Tylenol and ibuprofen for pain. Patient states he came in this evening as he could get not get comfortable. He does had his 1st dose of gabapentin today and is prescribed 300 mg b.i.d. patient has not had any prior imaging. He denies any prior issues in the past. He does use tobacco, alcohol but denies any illicit or IV drug use. Related Data Home Medications Medication Instructions Recorded Confirmed Calcium See Rx Instructions .ROUTE .COMPLEX 11/03/17 05/25/19 Metamucil See Rx Instructions .ROUTE .COMPLEX 11/03/17 05/25/19 Multivitamin See Rx Instructions .ROUTE .COMPLEX 11/03/17 05/25/19 Therapy Dog See Rx Instructions .ROUTE .COMPLEX 11/03/17 05/25/19 Tums 750 mg See Rx Instructions .ROUTE .COMPLEX 11/03/17 05/25/19 Vitamin B-12 See Rx Instructions .ROUTE .COMPLEX 11/03/17 05/25/19 Vitamin D3 See Rx Instructions .ROUTE .COMPLEX 11/03/17 05/25/19 Voltaren Gel 1% See Rx Instructions .ROUTE .COMPLEX 11/03/17 05/25/19 Zyrtec See Rx Instructions .ROUTE .COMPLEX 11/03/17 05/25/19 Previous Rx's Medication Instructions Recorded ibuprofen 800 mg tablet 800 mg PO BID PRN #180 tab 01/15/19 potassium chloride 10 mEq 10 meq PO DAILY #90 cap 01/15/19 capsule,extended release ondansetron 4 mg disintegrating 4 mg PO BID PRN #10 tab 02/20/19 tablet hydrochlorothiazide 25 mg tablet 25 mg PO DAILY #30 tab 04/23/19 lisinopril 10 mg tablet 10 mg PO DAILY #30 tab 04/23/19 ropinirole 0.25 mg tablet 0.25 mg PO BEDTIME #108 tab 04/24/19 ondansetron 4 mg disintegrating 4 mg PO BID PRN #14 tab 05/15/19 tablet metronidazole 500 mg tablet 500 mg PO TID #30 tab 05/25/19 clindamycin phosphate 1 % topical 1 applictn TOP BID PRN #30 ml 11/07/19 solution Disabled Parking Permit #1 ea 12/04/19 omeprazole 20 mg capsule,delayed 20 mg PO BID PRN #60 cap 01/14/20 release prednisone 20 mg tablet 40 mg PO DAILY #10 tab 09/30/20 tramadol 50 mg tablet (Ultram) 50 mg PO Q6H PRN #10 tab 09/30/20 Allergies Allergy/AdvReac Type Severity Reaction Status Date / Time banana [BANANA] Allergy Severe DIFFICULTY Verified 05/25/19 09:03 BREATHING Cephalosporins Allergy Severe STOPPED Verified 05/25/19 09:03 [CEPHALOSPORINS] BREATHING NSAIDS (Non-Steroidal AdvReac Severe Has had Verified 05/25/19 09:03 Anti-Inflamma Bariatric [NSAIDS (NON-STEROIDAL Surgery ANTI-INFLAMMA] Review of Systems Review of Systems ROS Unobtainable: All systems reviewed & are unremarkable except as noted in HPI and below Patient History Medical History Abdominal pain Diarrhea Hypertension (Unknown) Knee pain, left (Unknown) Nausea Sleep apnea (Unknown) Vitamin D deficiency (Unknown) Surgical History History of gastric bypass Social History Smoking Status: Former smoker Tobacco: How many years used: 1 second hand exposure: No alcohol intake: current (Once a week maybe) substance use type: does not use Smoking Status: Former smoker alcohol intake frequency: 0-2 drinks per day Substance Use Type: does not use Exam Narrative Exam Narrative: GENERAL: Alert and oriented x three, male in mild distress. HEENT: Head normocephalic, atraumatic, EOMI, pupils reactive, face symmetric, moist mucous membranes NECK: Supple, full range of motion CARDIOVASCULAR: Regular rate and rhythm without murmurs, rubs or gallops. RESPIRATORY: Breath sounds equal bilaterally, no wheezes rales or rhonchi. ABDOMEN: Soft, nontender. Normoactive bowel sounds all 4 quadrants. No guarding or rebound, rigidity, no mass : No CVA tenderness BACK: No cervical, thoracic or lumbar vertebral point tenderness. Patient has normal range of motion. Patient's gait is normal. No saddle anesthesia.. Muscle strength is 5/5 in lower extremities. Dorsalis pedis and tibialis pulses are 2+ and lower extremities. Sensation is intact in the lower extremities. EXTREMITIES: Normal range of motion, no clubbing or edema. Neurovascularly intact NEUROLOGICAL: Cranial nerves II through XII grossly intact. Moving all extremities SKIN: Warm, dry, no petechiae, no rashes or lesions. Initial Vital Signs Initial Vital Signs: Vital Signs Temperature 96.8 F L 09/30/20 00:46 Pulse Rate 77 09/30/20 00:46 Respiratory Rate 16 09/30/20 00:46 Blood Pressure 143/94 H 09/30/20 00:46 Pulse Oximetry 99 09/30/20 00:46 Course Orders Ordered: ED Orders 09/30/20 03:00 XR lumbar spine 2-3V Stat Discontinued Medications Ketorolac Tromethamine (Ketorolac 30 Mg/Ml Vial) 30 mg IM NOW ONE Stop: 09/30/20 03:01 Last Admin: 09/30/20 03:05 Dose: 30 mg Documented by: DAVON Prednisone (Prednisone 20 Mg Tablet) 60 mg PO NOW ONE Stop: 09/30/20 03:01 Last Admin: 09/30/20 03:06 Dose: 60 mg Documented by: DAVON Reevaluation(s) Reevaluation #1: Patient was sleeping when I arrived in the room. He states he still has back pain but he is having some improvement. He would like to return home. Reviewed preliminary x-ray findings. I do not have the [facility] read and discussed that his T12 vertebra look like it may have compression fracture although this seems like a less likely source of his pain. He also has multiple arthritic changes. Vital Signs Vital signs: Vital Signs - 8 hr 09/30/20 00:46 09/30/20 04:22 Temperature 96.8 F L Pulse Rate 77 70 Respiratory Rate 16 18 Blood Pressure 143/94 H 132/81 Pulse Oximetry 99 100 MDM - Back Pain/Injury Imaging Data Lspine xray: Radiologist's Impression: scoliosis no acute process per rads. [facility] Narrative Medical decision making narrative: 35-year-old male comes with complaint of back pain and left lumbar radiculopathy. Patient does not have any red flag symptoms. X-ray imaging was obtained which does appear to show some osteophytic changes. Night rad read as negative but changes reviewed by myself were discussed with the patient. Patient was started on prednisone, continue his gabapentin. Given a short course of pain medication and received a dose of Toradol here in the department. Patient was able to rest and sleep in the department all questions were answered, red flag symptoms and return precautions discussed. Discharge Plan Departure Patient Disposition: Home Clinical Impression: Sciatica of left side Instructions: DI for Back Pain With Sciatica Activity Restrictions/Additional Instructions: Follow-up with your physician for recheck in the next week. You may continue gabapentin, he may wish to increase to 300 mg 3 times daily this may be more effective. This is a titratable medication and her physician can adjusted much higher over time as needed. Take steroids daily until gone. You may take pain medication as prescribed. This medication can make you sleepy do not drive, perform hazardous activities or make any major decisions while taking it. This medication will make you constipated please take a stool softener once to twice daily until stools are soft and regular. Prescription to [facility] in [place]. Please return for fevers, rapidly worsening pain, new numbness, weakness or inability to walk or ambulate, loss of bowel or bladder control, loss of sensation in the groin or other new or concerning symptoms. Prescriptions: New prednisone 20 mg tablet 40 mg PO DAILY Qty: 10 RF: 0 tramadol [Ultram] 50 mg tablet 50 mg PO Q6H PRN (Reason: pain) Qty: 10 RF: 0 No Action Vitamin B-12 See Rx Instructions .ROUTE .COMPLEX RF: 0 Vitamin D3 See Rx Instructions .ROUTE .COMPLEX RF: 0 Calcium See Rx Instructions .ROUTE .COMPLEX RF: 0 Tums 750 mg See Rx Instructions .ROUTE .COMPLEX RF: 0 Zyrtec See Rx Instructions .ROUTE .COMPLEX RF: 0 Voltaren Gel 1% See Rx Instructions .ROUTE .COMPLEX RF: 0 Multivitamin See Rx Instructions .ROUTE .COMPLEX RF: 0 Therapy Dog See Rx Instructions .ROUTE .COMPLEX RF: 0 Metamucil See Rx Instructions .ROUTE .COMPLEX RF: 0 ondansetron 4 mg tablet,disintegrating 4 mg PO BID PRN (Reason: nausea and vomiting) Qty: 10 RF: 0 ondansetron 4 mg tablet,disintegrating 4 mg PO BID PRN (Reason: nausea and vomiting) Qty: 14 RF: 0 potassium chloride 10 mEq capsule, extended release 10 meq PO DAILY Qty: 90 RF: 3 ibuprofen 800 mg tablet 800 mg PO BID PRN (Reason: pain) Qty: 180 RF: 1 ropinirole 0.25 mg tablet 0.25 mg PO BEDTIME Qty: 108 RF: 0 clindamycin phosphate 1 % solution 1 applictn TOP BID PRN (Reason: recurrent cysts) Qty: 30 RF: 0 (DME) Disabled Parking Permit 0 .Route .MEDSUPPLY Qty: 1 RF: 0 omeprazole 20 mg capsule,delayed release(DR/EC) 20 mg PO BID PRN (Reason: NSAID use in Bariatric surgery patient) Qty: 60 RF: 0 lisinopril 10 mg tablet 10 mg PO DAILY Qty: 30 RF: 3 hydrochlorothiazide 25 mg tablet 25 mg PO DAILY Qty: 30 RF: 3 metronidazole 500 mg tablet 500 mg PO TID Qty: 30 RF: 0 Referrals: Vivien Moralez PA-C [Primary Care Provider] -
--- NOTE | 2020-09-30 03:00 | DI.RAD.S_ITS ---
PROCEDURE: XR LUMBAR SPINE 2-3V INDICATIONS: back pain, left leg pain TECHNIQUE: 3 views of the lumbar spine were acquired. COMPARISON: [facility], CT, CT ANGIO CHEST PE PROTOCOL, 07/28/2017, 22:08. [facility], CR, L-SPINE 2-3 VIEWS, 11/17/2010, 14:40. FINDINGS: Bones: Based on the comparison chest CT, the patient has 13 pairs of ribs. 4 [id number] vertebrae are present. There is normal bony alignment. No vertebral body compression fractures. No suspicious bony lesions. There is mild degenerative disc disease in the lower lumbar spine. Soft tissues: Overlying bowel gas pattern is normal. No suspicious soft tissue calcifications. IMPRESSION: 1. No acute osseous abnormalities. 2. Mild degenerative disc disease in lumbar spine. 3. Transitional anatomy. Dictated by: Susan Willoughby M.D. on 09/30/2020 at 9:20 Approved by: Susan Willoughby M.D. on 09/30/2020 at 9:26
[2020-09-30] MEDS: KETOROLAC 30 MG/ML VIAL IM (03:05)
[2020-09-30] MEDS: predniSONE 20 MG TABLET 60 MG PO (03:06)
[2020-09-30 04:22] VITALS: BP 132/81; PULSE 70; RESP 18; O2SAT 100
== END 2020-09-30 04:24 | disposition home or self-care (01) ==
PROVIDERS: Emergency Provider Emergency Medicine; Family Provider Physician Assistant; PCP Physician Assistant
DX: M54.32 Sciatica, left side (principal)
CPT/HCPCS: 72100; 96372; 99283; J1885

== ENCOUNTER 2020-10-10 19:57 | Emergency (ER) | payer OTHER, MEDICARE, MEDICAID, SELFPAY ==
[2020-10-10 20:11] VITALS: BP 170/92; PULSE 100; RESP 16; TEMP 36.4; O2SAT 100; BMI 36.0
== END 2020-10-10 20:56 | disposition left against medical advice (07) ==
PROVIDERS: Emergency Provider Emergency Medicine; Family Provider Physician Assistant; PCP Physician Assistant
CPT/HCPCS: 99281

== ENCOUNTER 2020-10-14 06:50 | Emergency (ER) | payer MEDICARE, MEDICAID, SELFPAY ==
[2020-10-14 07:12] VITALS: BP 154/89; PULSE 104; RESP 16; TEMP 37.1; O2SAT 99; BMI 36.0
--- NOTE | 2020-10-14 07:30 | ED.BACK ---
HPI - Back Pain/Injury General Chief Complaint: Back Pain/Injury Stated Complaint: Low back pain Time Seen by Provider: 10/14/20 07:22 Source: patient and family (spouse) Mode of arrival: Ambulatory Limitations: no limitations History of Present Illness HPI Narrative: This is a 35-year-old male comes emergency department complaint of low back pain. Patient was seen by myself on 09/30/2020. Patient has continued to have pain on his left sort of low very low back SI joint buttock and radiating down his leg. Patient denies any numbness or tingling. He states that sometimes it feels like his leg wants to go out. Patient denies any saddle anesthesia. No loss of bowel or bladder control. Patient has not any change in location of his pain. Patient has been ambulating. He states he comes today because he has been unable to control his pain to get sleep. Has been taking ibuprofen, he has been taking Neurontin or gabapentin 300 mg t.i.d. patient did receive a dose of Toradol here as well as prednisone and Ultram. He said this was mildly helpful. He had 1 good day of pain relief and continued. Patient does take medication for hypertension. He does have a history of gastric sleeve. Patient has not had back issues in the past regularly. Related Data Home Medications Medication Instructions Recorded Confirmed Calcium See Rx Instructions .ROUTE .COMPLEX 11/03/17 05/25/19 Metamucil See Rx Instructions .ROUTE .COMPLEX 11/03/17 05/25/19 Multivitamin See Rx Instructions .ROUTE .COMPLEX 11/03/17 05/25/19 Therapy Dog See Rx Instructions .ROUTE .COMPLEX 11/03/17 05/25/19 Tums 750 mg See Rx Instructions .ROUTE .COMPLEX 11/03/17 05/25/19 Vitamin B-12 See Rx Instructions .ROUTE .COMPLEX 11/03/17 05/25/19 Vitamin D3 See Rx Instructions .ROUTE .COMPLEX 11/03/17 05/25/19 Voltaren Gel 1% See Rx Instructions .ROUTE .COMPLEX 11/03/17 05/25/19 Zyrtec See Rx Instructions .ROUTE .COMPLEX 11/03/17 05/25/19 Previous Rx's Medication Instructions Recorded ibuprofen 800 mg tablet 800 mg PO BID PRN #180 tab 01/15/19 potassium chloride 10 mEq 10 meq PO DAILY #90 cap 01/15/19 capsule,extended release ondansetron 4 mg disintegrating 4 mg PO BID PRN #10 tab 02/20/19 tablet hydrochlorothiazide 25 mg tablet 25 mg PO DAILY #30 tab 04/23/19 lisinopril 10 mg tablet 10 mg PO DAILY #30 tab 04/23/19 ropinirole 0.25 mg tablet 0.25 mg PO BEDTIME #108 tab 04/24/19 ondansetron 4 mg disintegrating 4 mg PO BID PRN #14 tab 05/15/19 tablet metronidazole 500 mg tablet 500 mg PO TID #30 tab 05/25/19 clindamycin phosphate 1 % topical 1 applictn TOP BID PRN #30 ml 11/07/19 solution Disabled Parking Permit #1 ea 12/04/19 omeprazole 20 mg capsule,delayed 20 mg PO BID PRN #60 cap 01/14/20 release prednisone 20 mg tablet 40 mg PO DAILY #10 tab 09/30/20 tramadol 50 mg tablet (Ultram) 50 mg PO Q6H PRN #10 tab 09/30/20 gabapentin 300 mg capsule 600 mg PO TID #30 cap 10/14/20 hydrocodone 5 mg-acetaminophen 325 1 tab PO Q6H PRN #10 tab 10/14/20 mg tablet Allergies Allergy/AdvReac Type Severity Reaction Status Date / Time banana [BANANA] Allergy Severe DIFFICULTY Verified 10/10/20 20:11 BREATHING Cephalosporins Allergy Severe STOPPED Verified 10/10/20 20:11 [CEPHALOSPORINS] BREATHING NSAIDS (Non-Steroidal AdvReac Severe Has had Verified 10/10/20 20:11 Anti-Inflamma Bariatric [NSAIDS (NON-STEROIDAL Surgery ANTI-INFLAMMA] Review of Systems Review of Systems ROS Unobtainable: All systems reviewed & are unremarkable except as noted in HPI and below Patient History Medical History Abdominal pain Diarrhea Hypertension (Unknown) Knee pain, left (Unknown) Nausea Sleep apnea (Unknown) Vitamin D deficiency (Unknown) Surgical History History of gastric bypass Social History Smoking Status: Former smoker Tobacco: How many years used: 1 second hand exposure: No alcohol intake: current (Once a week maybe) substance use type: does not use Smoking Status: Former smoker alcohol intake frequency: holidays/special occasions only Substance Use Type: does not use Exam Narrative Exam Narrative: GENERAL: Alert and oriented x three, male in mild distress. HEENT: Head normocephalic, atraumatic, EOMI, pupils reactive, face symmetric, moist mucous membranes NECK: Supple, full range of motion CARDIOVASCULAR: Regular rate and rhythm without murmurs, rubs or gallops. RESPIRATORY: Breath sounds equal bilaterally, no wheezes rales or rhonchi. ABDOMEN: Soft, nontender. Normoactive bowel sounds all 4 quadrants. No guarding or rebound, rigidity, no mass : No CVA tenderness BACK: No cervical, thoracic or lumbar vertebral point tenderness. Patient's pain is able to be reproduced somewhat over the piriformis region. Patient has normal range of motion. Patient's gait is normal. Rectal exam is for. Muscle strength is 5/5 in lower extremities, DTRs are 2/4 and lower extremities. Dorsalis pedis and tibialis pulses are 2+ and lower extremities. Sensation is intact in the lower extremities. Patient does have a hematoma on his right anterior horne there is no warmth, erythema or other changes. EXTREMITIES: Normal range of motion, no clubbing or edema. Neurovascularly intact NEUROLOGICAL: Cranial nerves II through XII grossly intact. Moving all extremities SKIN: Warm, dry, no petechiae, no rashes or lesions. Initial Vital Signs Initial Vital Signs: Vital Signs Temperature 98.8 F 10/14/20 07:12 Pulse Rate 104 H 10/14/20 07:12 Respiratory Rate 16 10/14/20 07:12 Blood Pressure 154/89 H 10/14/20 07:12 Pulse Oximetry 99 10/14/20 07:12 Course Orders Ordered: Discontinued Medications Morphine Sulfate (Morphine 4 Mg/Ml Inj) 4 mg IV NOW ONE Stop: 10/14/20 07:45 Last Admin: 10/14/20 08:00 Dose: 4 mg Documented by: DIVINE Vital Signs Vital signs: Vital Signs - 8 hr 10/14/20 07:12 Temperature 98.8 F Pulse Rate 104 H Respiratory Rate 16 Blood Pressure 154/89 H Pulse Oximetry 99 MDM - Back Pain/Injury MDM Narrative Medical decision making narrative: This is a 35-year-old male who comes with complaint of consent persistent sciatica/low back pain. Patient has been taking Neurontin minimal improvement. As well as ibuprofen. Comes today with goal of pain relief. Patient has had xray imaging on last visit with no concerning abnormalities. Patient does not have any red flag symptoms. He is not while set up with a primary care physician and we discussed giving him orthopedic referral. Patient's did have x-ray on last visit as he had not had prior imaging. There some transitional anatomy and degenerative change but no major abnormalities. At this time patient's exam findings and in HPI do not warrant emergent MRI. Plan to increase his Neurontin, as well as add some narcotic pain control. Steroids were deferred as patient does have a history of gastric sleeve and did not have much help on the past. Discharge Plan Departure Patient Disposition: Home Clinical Impression: Left sided sciatica Instructions: DI for Sciatica Activity Restrictions/Additional Instructions: Follow-up for additional help in potential intervention if your symptoms are not improving over time. Referral was given for orthopedic surgery and is included below. You may increase your Neurontin/Gabapentin to 600mg (2 tablets) 3 times daily. Prescription is included for some additional medication. Take pain medication as prescribed. This medication can make you sleepy do not drive, perform hazardous activities or make any major decisions while taking it. This medication will make you constipated please take a stool softener once to twice daily until stools are soft and regular. MiraLax or Colace either option would be appropriate. Prescription sent to [facility] in [place]. Please return for fevers, rapidly worsening pain, new numbness, weakness or inability to walk or ambulate, loss of bowel or bladder control, loss of sensation in the groin or other new or concerning symptoms. Prescriptions: New hydrocodone-acetaminophen 5-325 mg tablet 1 tab PO Q6H PRN (Reason: pain) Qty: 10 RF: 0 gabapentin 300 mg capsule 600 mg PO TID Qty: 30 RF: 0 No Action Vitamin B-12 See Rx Instructions .ROUTE .COMPLEX RF: 0 Vitamin D3 See Rx Instructions .ROUTE .COMPLEX RF: 0 Calcium See Rx Instructions .ROUTE .COMPLEX RF: 0 Tums 750 mg See Rx Instructions .ROUTE .COMPLEX RF: 0 Zyrtec See Rx Instructions .ROUTE .COMPLEX RF: 0 Voltaren Gel 1% See Rx Instructions .ROUTE .COMPLEX RF: 0 Multivitamin See Rx Instructions .ROUTE .COMPLEX RF: 0 Therapy Dog See Rx Instructions .ROUTE .COMPLEX RF: 0 Metamucil See Rx Instructions .ROUTE .COMPLEX RF: 0 ondansetron 4 mg tablet,disintegrating 4 mg PO BID PRN (Reason: nausea and vomiting) Qty: 10 RF: 0 ondansetron 4 mg tablet,disintegrating 4 mg PO BID PRN (Reason: nausea and vomiting) Qty: 14 RF: 0 potassium chloride 10 mEq capsule, extended release 10 meq PO DAILY Qty: 90 RF: 3 ibuprofen 800 mg tablet 800 mg PO BID PRN (Reason: pain) Qty: 180 RF: 1 ropinirole 0.25 mg tablet 0.25 mg PO BEDTIME Qty: 108 RF: 0 clindamycin phosphate 1 % solution 1 applictn TOP BID PRN (Reason: recurrent cysts) Qty: 30 RF: 0 (DME) Disabled Parking Permit 0 .Route .MEDSUPPLY Qty: 1 RF: 0 omeprazole 20 mg capsule,delayed release(DR/EC) 20 mg PO BID PRN (Reason: NSAID use in Bariatric surgery patient) Qty: 60 RF: 0 lisinopril 10 mg tablet 10 mg PO DAILY Qty: 30 RF: 3 hydrochlorothiazide 25 mg tablet 25 mg PO DAILY Qty: 30 RF: 3 metronidazole 500 mg tablet 500 mg PO TID Qty: 30 RF: 0 prednisone 20 mg tablet 40 mg PO DAILY Qty: 10 RF: 0 tramadol [Ultram] 50 mg tablet 50 mg PO Q6H PRN (Reason: pain) Qty: 10 RF: 0 Referrals: Vivien Moralez PA-C [Primary Care Provider] -
[2020-10-14] MEDS: MORPHINE 4 MG/ML INJ IV (08:00)
== END 2020-10-14 08:15 | disposition home or self-care (01) ==
PROVIDERS: Emergency Provider Emergency Medicine; Family Provider Physician Assistant; PCP Physician Assistant
DX: M54.32 Sciatica, left side (principal)
CPT/HCPCS: 96374; 99283; 99284; J2270

== ENCOUNTER 2021-01-20 10:12 | Emergency (ER) | payer MEDICARE, MEDICAID, SELFPAY ==
[2021-01-20 10:21] VITALS: BP 142/100; PULSE 98; RESP 14; TEMP 36.9; O2SAT 99; BMI 34.4
--- NOTE | 2021-01-20 10:25 | DI.RAD.S_ITS ---
PROCEDURE: XR KNEE RT 3V INDICATIONS: fall, right knee pain. TECHNIQUE: 3 views of the knee were acquired. COMPARISON: [facility], CR, XR KNEE ARTHRITIC SERIES LT, 12/31/2019, 10:35. [facility], CR, KNEE 1-2 VIEWS LEFT, 11/17/2010, 15:39. [facility], , KNEE 1-2 VIEWS RIGHT, 11/17/2010, 14:40. FINDINGS: Exam is somewhat limited due to positioning. Bones: No fractures or dislocations. There is medial tilt of the right knee on the frontal projection. There is joint space narrowing and osteophytosis which appears progressed compared to 2010. No suspicious bony lesions. Soft tissues: A joint effusion is present. No suspicious soft tissue calcifications. IMPRESSION: No fractures identified. A joint effusion is present. Medial tilt on the AP projection and advanced early-onset degenerative change. Dictated by: Demario Dale M.D. on 01/20/2021 at 10:52 Approved by: Demario Dale M.D. on 01/20/2021 at 10:55
[2021-01-20] MEDS: ACETAMINOPHEN 325 MG TABLET 975 MG PO (10:29)
[2021-01-20] MEDS: IBUPROFEN 400 MG TABLET PO (10:30)
--- NOTE | 2021-01-20 13:19 | ED_ITS ---
HPI - Extremity Injury (Lower) General Chief Complaint: Extremity Injury, Lower Stated Complaint: Fell down stairs, Rt leg injury Time Seen by Provider: 01/20/21 12:04 Source: patient Mode of arrival: Wheelchair Limitations: no limitations History of Present Illness HPI Narrative: The patient slipped and fell while walking to his house yesterday, injuring his right knee. He had the edge of a step. He slipped on a wet surface. There is no head, neck or torso injury upper extremities are atraumatic. He has bilateral knee problems, he is quite bowlegged. He has already seen an orthopedic surgeon. He has pain in the right knee, no contusion and no open wounds. There is no other lower extremity injury. He is ambulatory with a cane. Related Data Home Medications Medication Instructions Recorded Confirmed Calcium See Rx Instructions .ROUTE .COMPLEX 11/03/17 05/25/19 Metamucil See Rx Instructions .ROUTE .COMPLEX 11/03/17 05/25/19 Multivitamin See Rx Instructions .ROUTE .COMPLEX 11/03/17 05/25/19 Therapy Dog See Rx Instructions .ROUTE .COMPLEX 11/03/17 05/25/19 Tums 750 mg See Rx Instructions .ROUTE .COMPLEX 11/03/17 05/25/19 Vitamin B-12 See Rx Instructions .ROUTE .COMPLEX 11/03/17 05/25/19 Vitamin D3 See Rx Instructions .ROUTE .COMPLEX 11/03/17 05/25/19 Voltaren Gel 1% See Rx Instructions .ROUTE .COMPLEX 11/03/17 05/25/19 Zyrtec See Rx Instructions .ROUTE .COMPLEX 11/03/17 05/25/19 Previous Rx's Medication Instructions Recorded ibuprofen 800 mg tablet 800 mg PO BID PRN #180 tab 01/15/19 potassium chloride 10 mEq 10 meq PO DAILY #90 cap 01/15/19 capsule,extended release ondansetron 4 mg disintegrating 4 mg PO BID PRN #10 tab 02/20/19 tablet hydrochlorothiazide 25 mg tablet 25 mg PO DAILY #30 tab 04/23/19 lisinopril 10 mg tablet 10 mg PO DAILY #30 tab 04/23/19 ropinirole 0.25 mg tablet 0.25 mg PO BEDTIME #108 tab 04/24/19 ondansetron 4 mg disintegrating 4 mg PO BID PRN #14 tab 05/15/19 tablet metronidazole 500 mg tablet 500 mg PO TID #30 tab 05/25/19 clindamycin phosphate 1 % topical 1 applictn TOP BID PRN #30 ml 11/07/19 solution Disabled Parking Permit #1 ea 12/04/19 omeprazole 20 mg capsule,delayed 20 mg PO BID PRN #60 cap 01/14/20 release prednisone 20 mg tablet 40 mg PO DAILY #10 tab 09/30/20 tramadol 50 mg tablet (Ultram) 50 mg PO Q6H PRN #10 tab 09/30/20 gabapentin 300 mg capsule 600 mg PO TID #30 cap 10/14/20 hydrocodone 5 mg-acetaminophen 325 1 tab PO Q6H PRN #10 tab 10/14/20 mg tablet tramadol 50 mg tablet 50 mg PO Q6-8H PRN #15 tab 01/20/21 Allergies Allergy/AdvReac Type Severity Reaction Status Date / Time banana [BANANA] Allergy Severe DIFFICULTY Verified 01/20/21 10:24 BREATHING Cephalosporins Allergy Severe STOPPED Verified 01/20/21 10:24 [CEPHALOSPORINS] BREATHING NSAIDS (Non-Steroidal AdvReac Severe Has had Verified 01/20/21 10:24 Anti-Inflamma Bariatric [NSAIDS (NON-STEROIDAL Surgery ANTI-INFLAMMA] Review of Systems Constitutional Constitutional: Denies weakness Comments: No recent illness. No other injuries. Musculoskeletal Musculoskeletal: Reports as per HPI, Denies deformity, Reports arthralgias and Denies numbness Integumentary/Breasts Skin/Breast: Denies lesions and Denies rash Comments: No obvious superficial injuries. Neurologic Neurologic: Denies confusion, Denies numbness and Denies weakness Psychiatric Psychiatric: Denies confusion and Denies depression Patient History Medical History Abdominal pain Diarrhea Hypertension (Unknown) Knee pain, left (Unknown) Nausea Sleep apnea (Unknown) Vitamin D deficiency (Unknown) Surgical History History of gastric bypass Social History Smoking Status: Former smoker Tobacco: How many years used: 1 second hand exposure: No alcohol intake: current (Once a week maybe) substance use type: does not use Smoking Status: Former smoker alcohol intake frequency: holidays/special occasions only Substance Use Type: does not use Exam Initial Vital Signs Initial Vital Signs: Vital Signs Temperature 98.5 F 01/20/21 10:21 Pulse Rate 98 H 01/20/21 10:21 Respiratory Rate 14 01/20/21 10:21 Blood Pressure 142/100 H 01/20/21 10:21 Pulse Oximetry 99 01/20/21 10:21 Const General: cooperative, healthy appearing and comfortable Skin General: no rashes or lesions noted Neuro General: patient alert, patient awake, patient oriented x3 and no focal motor deficits Extrem Other: Right knee tender at the insertion of the MCL. No laxity. No lateral tenderness. Anterior drawer sign is negative. Patella is nontender. Range of motion is limited to 0-70 degrees due to pain. There is no calf tenderness. Procedures Orthopedic Splinting/Casting Injury #1: Side: right Lower Extremity Injury Location: knee Lower Extremity Immobilizer: knee immobilizer Post splinting neuro exam: intact Post splinting vascular exam: intact Placed by: Nursing Course Orders Ordered: Discontinued Medications Acetaminophen (Acetaminophen 325 Mg Tablet) 975 mg PO NOW ONE Stop: 01/20/21 10:26 Last Admin: 01/20/21 10:29 Dose: 975 mg Documented by: JD Ibuprofen (Ibuprofen 400 Mg Tablet) 400 mg PO NOW ONE Stop: 01/20/21 10:26 Last Admin: 01/20/21 10:30 Dose: 400 mg Documented by: JD Vital Signs Vital signs: Vital Signs - 8 hr 01/20/21 13:28 Pulse Rate 86 Blood Pressure 130/74 Pulse Oximetry 99 MDM - Extremity Injury (Lower) Imaging Data Right knee x-ray: Radiologist's Impression: [address] [address] XRay Report Signed Patient: Panda Chester MR#: [id number] : 1985 Acct:[id number] Age/Sex: 35 / M Date of Service: 01/20/21 Loc: ED Accession Number: [id number] ?? Procedure: XR knee RT 3V Ordering Provider: Reginaldo Aaron MD PROCEDURE:? XR KNEE RT 3V ? INDICATIONS:? fall, right knee pain. ? TECHNIQUE:? 3 views of the knee were acquired.? ? COMPARISON:? [facility] [place], [place], XR KNEE ARTHRITIC SERIES LT, 12/31/2019, 10:35.? [facility], ALDO, KNEE 1-2 VIEWS LEFT, 11/17/2010, 15:39.? [facility], [place], KNEE 1-2 VIEWS RIGHT, 11/17/2010, 14:40. ? FINDINGS:? Exam is somewhat limited due to positioning. ? Bones:? No fractures or dislocations.? There is medial tilt of the right knee on the frontal projection.? There is joint space narrowing and osteophytosis which appears progressed compared to 2010.? No suspicious bony lesions.? ? Soft tissues:? A joint effusion is present.? No suspicious soft tissue calcifications.? ? ? IMPRESSION:? No fractures identified.? A joint effusion is present. ? Medial tilt on the AP projection and advanced early-onset degenerative change. ? ? Dictated by: Demario Dale M.D. on 01/20/2021 at 10:52 ? ? Approved by: Demario Dale M.D. on 01/20/2021 at 10:55?? Discharge Plan Departure Patient Disposition: Home Clinical Impression: MCL sprain of right knee Qualifiers: Encounter type: initial encounter Qualified Code(s): S83.411A - Sprain of medial collateral ligament of right knee, initial encounter Instructions: DI for Knee Sprain Activity Restrictions/Additional Instructions: Use the knee immobilizer as needed. Wean from the immobilizer as tolerated. Take Tylenol or ibuprofen as needed for pain. Tramadol every 6 hours as needed for added pain control. Contact her with the surgeon about a recheck the right knee. Prescriptions: New tramadol 50 mg tablet 50 mg PO Q6-8H PRN (Reason: pain) Qty: 15 RF: 0 No Action Vitamin B-12 See Rx Instructions .ROUTE .COMPLEX RF: 0 Vitamin D3 See Rx Instructions .ROUTE .COMPLEX RF: 0 Calcium See Rx Instructions .ROUTE .COMPLEX RF: 0 Tums 750 mg See Rx Instructions .ROUTE .COMPLEX RF: 0 Zyrtec See Rx Instructions .ROUTE .COMPLEX RF: 0 Voltaren Gel 1% See Rx Instructions .ROUTE .COMPLEX RF: 0 Multivitamin See Rx Instructions .ROUTE .COMPLEX RF: 0 Therapy Dog See Rx Instructions .ROUTE .COMPLEX RF: 0 Metamucil See Rx Instructions .ROUTE .COMPLEX RF: 0 ondansetron 4 mg tablet,disintegrating 4 mg PO BID PRN (Reason: nausea and vomiting) Qty: 10 RF: 0 ondansetron 4 mg tablet,disintegrating 4 mg PO BID PRN (Reason: nausea and vomiting) Qty: 14 RF: 0 potassium chloride 10 mEq capsule, extended release 10 meq PO DAILY Qty: 90 RF: 3 ibuprofen 800 mg tablet 800 mg PO BID PRN (Reason: pain) Qty: 180 RF: 1 ropinirole 0.25 mg tablet 0.25 mg PO BEDTIME Qty: 108 RF: 0 clindamycin phosphate 1 % solution 1 applictn TOP BID PRN (Reason: recurrent cysts) Qty: 30 RF: 0 (DME) Disabled Parking Permit 0 .Route .MEDSUPPLY Qty: 1 RF: 0 omeprazole 20 mg capsule,delayed release(DR/EC) 20 mg PO BID PRN (Reason: NSAID use in Bariatric surgery patient) Qty: 60 RF: 0 lisinopril 10 mg tablet 10 mg PO DAILY Qty: 30 RF: 3 hydrochlorothiazide 25 mg tablet 25 mg PO DAILY Qty: 30 RF: 3 metronidazole 500 mg tablet 500 mg PO TID Qty: 30 RF: 0 prednisone 20 mg tablet 40 mg PO DAILY Qty: 10 RF: 0 tramadol [Ultram] 50 mg tablet 50 mg PO Q6H PRN (Reason: pain) Qty: 10 RF: 0 hydrocodone-acetaminophen 5-325 mg tablet 1 tab PO Q6H PRN (Reason: pain) Qty: 10 RF: 0 gabapentin 300 mg capsule 600 mg PO TID Qty: 30 RF: 0
[2021-01-20 13:28] VITALS: BP 130/74; PULSE 86; O2SAT 99
== END 2021-01-20 13:30 | disposition home or self-care (01) ==
PROVIDERS: Emergency Provider Emergency Medicine
DX: S83.411A Sprain of medial collateral ligament of right knee, initial encounter (principal); W01.0XXA Fall on same level from slipping, tripping and stumbling without subsequent striking against object, initial encounter
CPT/HCPCS: 73562; 99283; 99284

== ENCOUNTER → 2021-02-20 16:15 | Outpatient (CLI) | payer MEDICARE, MEDICAID, SELFPAY | PROVIDERS: Visit Provider Physician Assistant | DX: R30.0 Dysuria (principal) | CPT/HCPCS: 87077; 87086; 87186 ==

== ENCOUNTER → 2021-07-10 08:17 | Outpatient (CLI) | payer MEDICARE, MEDICAID, SELFPAY | PROVIDERS: Visit Provider Physician Assistant | DX: N39.0 Urinary tract infection, site not specified (principal) | CPT/HCPCS: 87077; 87086; 87186 ==

== ENCOUNTER → 2022-07-28 09:44 | Outpatient (CLI) | payer OTHER, MEDICARE, SELFPAY ==
--- NOTE | 2022-07-28 09:48 | DI.US.S_ITS ---
PROCEDURE: US EXTREMITY NONVASC LOWER RT INDICATIONS: POSSIBLE HEMATOMA - MASS RIGHT LOWER TIB/FIB. The patient gives additional history of regional trauma 3 weeks previously. TECHNIQUE: Real-time scanning was performed of the distal right lower extremity at the area of clinical concern, with image documentation. Color Doppler was also utilized. COMPARISON: [facility], EXTREMITY NON-VASCULAR LTD, 06/20/2012, 17:14. FINDINGS: Scanning is performed at the area of clinical concern. At this site, there is a nonvascular heterogeneous hypoechoic lesion that measures 5.1 x 1.8 x 4.6 cm. Moderate surrounding soft tissue edema can be seen. IMPRESSION: There is a nonvascular heterogeneous fluid collection seen at the site of clinical concern, which is most likely related to a soft tissue hematoma. If clinically appropriate, please consider short-term follow-up to assure resolution/improvement. Dictated by: Cesar Hyde M.D. on 07/28/2022 at 12:21 Approved by: Cesar Hyde M.D. on 07/28/2022 at 12:23
== END ==
PROVIDERS: PCP Family Medicine; Referring Provider Physician Assistant; Visit Provider Physician Assistant
DX: R22.41 Localized swelling, mass and lump, right lower limb (principal)
CPT/HCPCS: 76882

== ENCOUNTER 2022-08-31 12:48 | Emergency (ER) | payer OTHER, MEDICARE, SELFPAY ==
[2022-08-31 13:15] VITALS: BP 141/86; PULSE 74; RESP 14; TEMP 37.1; O2SAT 99; BMI 36.0
--- NOTE | 2022-08-31 13:30 | ED.SKABFB ---
HPI - Skin/Abscess/Foreign Bdy <Abdiel Fernández PA-C - Last Filed: 08/31/22 13:38> General Chief complaint: Skin/Abscess/Foreign Body Stated complaint: Swelling/brusing/lump on L leg, sent by doctor Time Seen by Provider: 08/31/22 13:18 Source: patient Mode of arrival: Ambulatory Limitations: no limitations History of Present Illness HPI narrative: 37-year-old male with past medical history diverticulitis, hypertension, obstructive sleep apnea presents to the ED with 1 week of left lower leg soreness. Patient states that the car door accidentally hit his lower left leg just beneath his left knee last week. Following that, patient feels a lump like a hematoma and some mild soreness. Patient called his PCP, who sent him to the ED to rule out a DVT. Patient denies chest pain, shortness of breath, nausea, vomiting, lightheadedness, dizziness, syncope, numbness, tingling, weakness. Patient endorses being able to bear weight and walk comfortably. Patient also states that he had the same accident happened on his right leg awhile ago, he experienced the same type a hematoma which resolved spontaneously after a few days. Patient has no history of DVTs or PEs. No recent surgery, no recent immobilization. Related Data Home Medications Medication Instructions Recorded Confirmed Calcium See Rx Instructions .Route .COMPLEX 11/03/17 09/13/22 Metamucil See Rx Instructions .Route .COMPLEX 11/03/17 09/13/22 Multivitamin See Rx Instructions .Route .[facility] 11/03/17 09/13/22 Therapy Dog See Rx Instructions .Route .COMPLEX 11/03/17 09/13/22 Tums 750 mg See Rx Instructions .Route .COMPLEX 11/03/17 09/13/22 Vitamin B-12 See Rx Instructions .Route .COMPLEX 11/03/17 09/13/22 Vitamin D3 See Rx Instructions .Route .COMPLEX 11/03/17 09/13/22 Voltaren Gel 1% See Rx Instructions .Route .COMPLEX 11/03/17 09/13/22 Previous Rx's Medication Instructions Recorded Disabled Parking Permit #1 ea 12/04/19 clindamycin phosphate 1 % topical 1 applic topical BID PRN rash #30 10/15/21 solution mL doxycycline monohydrate 100 mg 100 mg PO BID #20 caps 06/08/22 capsule omeprazole 20 mg capsule,delayed See Rx Instructions .Route 06/14/22 release .COMPLEX #180 caps ketoconazole 2 % shampoo See Rx Instructions .Route 07/07/22 .COMPLEX #120 mL potassium chloride 10 mEq See Rx Instructions .Route 07/07/22 capsule,extended release .COMPLEX #90 caps Compression stockings #1 ea 07/21/22 miscellaneous medical supply #1 ea 07/21/22 (Blood Pressure Cuff) cetirizine 10 mg tablet 10 mg PO DAILY #90 tabs 08/10/22 hydrochlorothiazide 25 mg tablet See Rx Instructions .Route 08/17/22 .COMPLEX #90 tabs clindamycin phosphate 1 % topical See Rx Instructions .Route 08/30/22 gel .COMPLEX #30 grams ibuprofen 800 mg tablet 800 mg PO BID PRN pain #180 tabs 09/01/22 Allergies Allergy/AdvReac Type Severity Reaction Status Date / Time banana [BANANA] Allergy Severe DIFFICULTY Verified 09/13/22 13:50 BREATHING Cephalosporins Allergy Severe STOPPED Verified 09/13/22 13:50 [CEPHALOSPORINS] BREATHING NSAIDS (Non-Steroidal AdvReac Severe Has had Verified 09/13/22 13:50 Anti-Inflamma Bariatric [NSAIDS (NON-STEROIDAL Surgery ANTI-INFLAMMA] Review of Systems <Abdiel Fernández PA-C - Last Filed: 08/31/22 13:38> Review of Systems ROS Unobtainable: All systems reviewed & are unremarkable except as noted in HPI and below Constitutional Constitutional: Denies chills, Denies fatigue, Denies fever(s), Denies frequent falls, Denies lethargy and Denies weakness Eyes Eyes: Denies change in vision, Denies eye discharge, Denies irritation and Denies loss of vision ENT Ears, Nose, Mouth, and Throat: Denies change in voice, Denies dizziness, Denies neck pain, Denies sore throat and Denies throat swelling Cardiovascular Cardiovascular: Denies chest pain, Denies irregular heart rhythm, Denies lightheadedness, Denies palpitations, Denies dyspnea, Denies dyspnea on exertion and Denies orthopnea Respiratory Respiratory: Denies cough, Denies dyspnea, Denies dyspnea on exertion and Denies wheezing Gastrointestinal Gastrointestinal: Denies abdominal pain, Denies change in bowel habits, Denies diarrhea, Denies nausea and Denies vomiting Genitourinary Genitourinary: Denies hematuria, Denies flank pain, Denies urinary incontinence and Denies urinary urgency Musculoskeletal Musculoskeletal: Denies back pain, Denies muscle weakness, Denies neck pain, Denies numbness and Denies tingling Comments: Left lower leg pain, swelling, hematoma Integumentary/Breasts Skin/Breast: Denies pruritus, Denies erythema, Denies rash and Denies wounds Neurologic Neurologic: Denies behavioral changes, Denies confusion, Denies dizziness, Denies frequent falls, Denies loss of vision, Denies numbness, Denies tingling and Denies weakness Psychiatric Psychiatric: Denies anxiety, Denies behavioral changes, Denies confusion, Denies depression, Denies homicidal ideation and Denies suicidal ideation Endocrine Endocrine: Denies fatigue, Denies flushing and Denies palpitations Hematologic/Lymphatic Hematologic/Lymphatic: Denies easy bruising Allergic/Immunologic Allergic/Immunologic: Denies urticaria, Denies throat swelling and Denies wheezing Patient History <Abdiel Fernández PA-C - Last Filed: 08/31/22 13:38> Medical History Diarrhea Hypertension (Unknown) Knee pain, left (Unknown) Sleep apnea (Unknown) Vitamin D deficiency (Unknown) Surgical History History of gastric bypass Social History Smoking Status: Former smoker Tobacco: How many years used: 1 second hand exposure: No alcohol intake: current (Once a week maybe) substance use type: does not use Smoking Status: Former smoker alcohol intake frequency: holidays/special occasions only Substance Use Type: does not use Exam <Abdiel Fernández PA-C - Last Filed: 08/31/22 13:38> Narrative Exam Narrative: Const General:?cooperative, healthy appearing and comfortable [facility] Head:?normal to inspection Ears:?hearing grossly normal bilaterally Nose:?external nose normal Face and sinus:?normal facial exam and sinuses nontender Mouth:?oral mucosae normal Throat:?posterior oropharynx normal Eyes General:?appearance normal, both eyes and all related structures Neck Neck:?normal visual inspection and no lymphadenopathy noted Resp Effort & Inspection:?normal respiratory effort Auscultation:?clear to auscultation bilaterally Cardio Rate:?regular rate Rhythm:?regular rhythm Musculoskeletal There is a hematoma to the proximal, medial left calf, some mild bruising. There is mild tenderness to palpation. Strength and sensation is intact. Full range of motion. Patient is able to bear weight and walk. Patient is neurovascularly intact. Neuro General:?patient alert, patient awake and patient oriented x3 Initial Vital Signs Initial Vital Signs: Vital Signs Temperature 98.8 F 08/31/22 13:15 Pulse Rate 74 08/31/22 13:15 Respiratory Rate 14 08/31/22 13:15 Blood Pressure 141/86 H 08/31/22 13:15 Pulse Oximetry 99 08/31/22 13:15 Oxygen Delivery Method Room Air 08/31/22 13:15 <Perry Garcia MD - Last Filed: 09/15/22 20:03> Initial Vital Signs Initial Vital Signs: Vital Signs Temperature 98.8 F 08/31/22 13:15 Pulse Rate 74 08/31/22 13:15 Respiratory Rate 14 08/31/22 13:15 Blood Pressure 141/86 H 08/31/22 13:15 Pulse Oximetry 99 08/31/22 13:15 Oxygen Delivery Method Room Air 08/31/22 13:15 Course <Abdiel Fernández PA-C - Last Filed: 08/31/22 13:38> Vital Signs Vital signs: Vital Signs - 8 hr 08/31/22 13:15 Temperature 98.8 F Pulse Rate 74 Respiratory Rate 14 Blood Pressure 141/86 H Pulse Oximetry 99 Oxygen Delivery Method Room Air <Perry Garcia MD - Last Filed: 09/15/22 20:03> Vital Signs Vital signs: Vital Signs - 8 hr 08/31/22 13:15 Temperature 98.8 F Pulse Rate 74 Respiratory Rate 14 Blood Pressure 141/86 H Pulse Oximetry 99 Oxygen Delivery Method Room Air MDM - Skin/Abscess/Foreign Bdy <Abdiel Fernández PA-C - Last Filed: 08/31/22 13:38> MDM Narrative Medical decision making narrative: 37-year-old male with past medical history diverticulitis, hypertension, obstructive sleep apnea presents to the ED with 1 week of left lower leg soreness. Patient's symptoms are likely due to the car door striking his leg, causing a bruise and hematoma. Patient is neurovascularly intact. Patient has no history of DVTs or PEs. Other than the left lower leg swelling at the site of the hematoma, patient is PERC negative, and the cause of the lower leg swelling is from trauma. Low suspicion for DVT at this point given PE and history, no imaging indicated at this time. Discussed findings with patient. Patient agrees that his symptoms are from the trauma, very similar to the trauma he experienced on the other leg sometime ago. Patient agrees to follow-up with his PCP as soon as possible. ED return precautions were discussed with patient. Patient verbalized understanding. Medical records reviewed: Yes Discharge Plan Departure Patient Disposition: Home Clinical Impression: Leg pain Instructions: DI for Leg Pain Activity Restrictions/Additional Instructions: You were evaluated in the ED today for left-sided lower leg pain. Your symptoms are from a bruise and hematoma from the car door hitting your lower left leg. Your symptoms will improve as the hematoma is absorbed by the body, and there is no diagnostics or intervention indicated at this time. Please return to the ED if your symptoms worsen, you experience chest pain or shortness of breath. Please follow-up with your PCP as soon as possible. Prescriptions: No Action Vitamin B-12 See Rx Instructions .ROUTE .COMPLEX Patient Comments: Take 1 tablet by mouth once daily. Rx Instructions: Take 1 tablet by mouth once daily. Vitamin D3 See Rx Instructions .ROUTE .COMPLEX Patient Comments: Take 1 tablet by mouth daily. Rx Instructions: Take 1 tablet by mouth daily. Calcium See Rx Instructions .ROUTE .COMPLEX Patient Comments: 1 Tab PO QDAY Rx Instructions: 1 Tab PO QDAY Tums 750 mg See Rx Instructions .ROUTE .COMPLEX Patient Comments: 2 Chewable tablets PRN Rx Instructions: 2 Chewable tablets PRN Voltaren Gel 1% See Rx Instructions .ROUTE .COMPLEX Patient Comments: Apply 4 grams up to 4 times a day to right and/or left knee as needed for pain. Rx Instructions: Apply 4 grams up to 4 times a day to right and/or left knee as needed for pain. Multivitamin See Rx Instructions .ROUTE .COMPLEX Patient Comments: 1 tab PO QDAY Rx Instructions: 1 tab PO QDAY Therapy Dog See Rx Instructions .ROUTE .COMPLEX Patient Comments: Patient may have a therapy dog in his apartment. Rx Instructions: Patient may have a therapy dog in his apartment. Metamucil See Rx Instructions .ROUTE .COMPLEX Patient Comments: 1 to 2 capsule PO QDAY Rx Instructions: 1 to 2 capsule PO QDAY (DME) Blood Pressure Cuff Misc See Rx Instructions .Route Qty: 1 0RF Rx Instructions: As directed (DME) Compression stockings See Rx Instructions .Route .MEDSUPPLY Qty: 1 0RF Rx Instructions: As directed doxycycline monohydrate 100 mg capsule 100 mg PO BID Qty: 20 6RF (DME) Disabled Parking Permit 0 .Route .MEDSUPPLY Qty: 1 0RF Dose Instruction: As directed Rx Instructions: PATIENT QUALIFIES FOR DISABLED PARKING PERMIT clindamycin phosphate 1 % solution 1 applic TOP BID PRN (Reason: rash) Qty: 30 0RF omeprazole 20 mg capsule,delayed release(DR/EC) See Rx Instructions .ROUTE .COMPLEX Qty: 180 0RF Dose Instruction: TAKE 1 CAPSULE BY MOUTH TWICE DAILY NEEDED FOR NSAID USE IN BARIATRIC SURGERY PATIENT Rx Instructions: TAKE 1 CAPSULE BY MOUTH TWICE DAILY NEEDED FOR NSAID USE IN BARIATRIC SURGERY PATIENT ketoconazole 2 % shampoo See Rx Instructions .ROUTE .COMPLEX Qty: 120 2RF Dose Instruction: APPLY TOPICALLY 2 TIMES A WEEK Rx Instructions: APPLY TOPICALLY 2 TIMES A WEEK potassium chloride 10 mEq capsule, extended release See Rx Instructions .ROUTE .COMPLEX Qty: 90 1RF Dose Instruction: TAKE 1 CAPSULE BY MOUTH DAILY Rx Instructions: TAKE 1 CAPSULE BY MOUTH DAILY cetirizine 10 mg tablet 10 mg PO DAILY Qty: 90 1RF hydrochlorothiazide 25 mg tablet See Rx Instructions .ROUTE .COMPLEX Qty: 90 3RF Dose Instruction: TAKE ONE TABLET ONCE DAILY WITH LISINOPRIL FOR HIGH BLOOD PRESSURE Rx Instructions: TAKE ONE TABLET ONCE DAILY WITH LISINOPRIL FOR HIGH BLOOD PRESSURE clindamycin phosphate 1 % gel See Rx Instructions .ROUTE .COMPLEX Qty: 30 0RF Dose Instruction: APPLY TOPICALLY TO THE AFFECTED AREA TWICE DAILY Rx Instructions: APPLY TOPICALLY TO THE AFFECTED AREA TWICE DAILY ibuprofen 800 mg tablet 800 mg PO BID PRN (Reason: pain) Qty: 180 1RF Referrals: Meeta Restrepo MD [Primary Care Provider] - Stand Alone Forms: Patient Portal/API <Perry Garcia MD - Last Filed: 09/15/22 20:03> Cosign ED Attending Cospeterature Attestation: I was immediately available in the department for consultation. This documentation has been reviewed and I agree with assessment and plan. Supervised by Perry Garcia MD
--- NOTE | 2022-08-31 13:31 | PC.NURSE ---
Hematoma to the medial lower L leg from hitting it on a car door.
== END 2022-08-31 13:32 | disposition home or self-care (01) ==
PROVIDERS: Emergency Provider Student in an Organized Health Care Education/Training Program; PCP Family Medicine
DX: M79.662 Pain in left lower leg (principal)
CPT/HCPCS: 99281

== ENCOUNTER 2022-12-13 09:24 | Emergency (ER) | payer OTHER, MEDICARE, SELFPAY ==
[2022-12-13 09:27] VITALS: BP 160/96; PULSE 88; RESP 20; TEMP 36.7; O2SAT 100; BMI 38.7
--- NOTE | 2022-12-13 09:40 | ED.FALL ---
HPI - Fall General Chief Complaint: Fall Stated Complaint: feels like he has broken ribs Time Seen by Provider: 12/13/22 09:25 Source: patient Mode of arrival: Ambulatory History of Present Illness HPI Narrative: Patient is a 37-year-old male who is here for evaluation of left-sided lower rib pain. He states that last night he tripped going up some stairs and landed on her left rib. No fevers. No abdominal pain. No nausea or vomiting. Since that time he is had difficulty with palpation and movement of the left ribs. No nausea or vomiting. No cough. Related Data Home Medications Medication Instructions Recorded Confirmed Calcium See Rx Instructions .Route .COMPLEX 11/03/17 09/13/22 Metamucil See Rx Instructions .Route .COMPLEX 11/03/17 09/13/22 Multivitamin See Rx Instructions .Route .COMPLEX 11/03/17 09/13/22 Therapy Dog See Rx Instructions .Route .COMPLEX 11/03/17 09/13/22 Tums 750 mg See Rx Instructions .Route .COMPLEX 11/03/17 09/13/22 Vitamin B-12 See Rx Instructions .Route .COMPLEX 11/03/17 09/13/22 Vitamin D3 See Rx Instructions .Route .COMPLEX 11/03/17 09/13/22 Voltaren Gel 1% See Rx Instructions .Route .COMPLEX 11/03/17 09/13/22 Previous Rx's Medication Instructions Recorded clindamycin phosphate 1 % topical 1 applic topical BID PRN rash #30 10/15/21 solution mL doxycycline monohydrate 100 mg 100 mg PO BID #20 caps 06/08/22 capsule omeprazole 20 mg capsule,delayed See Rx Instructions .Route 06/14/22 release .COMPLEX #180 caps ketoconazole 2 % shampoo See Rx Instructions .Route 07/07/22 .COMPLEX #120 mL potassium chloride 10 mEq See Rx Instructions .Route 07/07/22 capsule,extended release .COMPLEX #90 caps Compression stockings #1 ea 07/21/22 miscellaneous medical supply #1 ea 07/21/22 (Blood Pressure Cuff) cetirizine 10 mg tablet 10 mg PO DAILY #90 tabs 08/10/22 hydrochlorothiazide 25 mg tablet See Rx Instructions .Route 08/17/22 .COMPLEX #90 tabs ibuprofen 800 mg tablet 800 mg PO BID PRN pain #180 tabs 09/01/22 Disabled Parking #1 ea 09/29/22 clindamycin phosphate 1 % topical 1 applic topical BID #30 grams 10/25/22 gel hydrocodone 5 mg-acetaminophen 325 1 tab PO Q4-6H PRN pain #10 tabs 12/13/22 mg tablet Allergies Allergy/AdvReac Type Severity Reaction Status Date / Time banana [BANANA] Allergy Severe DIFFICULTY Verified 09/13/22 13:50 BREATHING Cephalosporins Allergy Severe STOPPED Verified 09/13/22 13:50 [CEPHALOSPORINS] BREATHING NSAIDS (Non-Steroidal AdvReac Severe Has had Verified 09/13/22 13:50 Anti-Inflamma Bariatric [NSAIDS (NON-STEROIDAL Surgery ANTI-INFLAMMA] Review of Systems Constitutional Constitutional: Reports system reviewed and no additional complaints, except as documented Cardiovascular Cardiovascular: Reports system reviewed and no additional complaints, except as documented Respiratory Respiratory: Reports system reviewed and no additional complaints, except as documented Gastrointestinal Gastrointestinal: Reports system reviewed and no additional complaints, except as documented Integumentary/Breasts Skin/Breast: Reports system reviewed and no additional complaints, except as documented Hematologic/Lymphatic On Anticoagulants: No Patient History Medical History Diarrhea Hypertension (Unknown) Knee pain, left (Unknown) Sleep apnea (Unknown) Vitamin D deficiency (Unknown) Surgical History History of gastric bypass Social History Smoking Status: Former smoker Tobacco: How many years used: 1 second hand exposure: No alcohol intake: current (Once a week maybe) substance use type: does not use Smoking Status: Former smoker alcohol intake frequency: holidays/special occasions only Substance Use Type: does not use Exam Initial Vital Signs Initial Vital Signs: Vital Signs Temperature 98.0 F 12/13/22 09:27 Pulse Rate 88 12/13/22 09:27 Respiratory Rate 20 12/13/22 09:27 Blood Pressure 160/96 H 12/13/22 09:27 Pulse Oximetry 100 12/13/22 09:27 Oxygen Delivery Method Room Air 12/13/22 09:27 HENMT Head: normal to inspection and normocephalic Chest Other: Tenderness to palpation left anterior lower ribs. No crepitus noted. Resp Effort & Inspection: normal respiratory effort Auscultation: clear to auscultation bilaterally GI Inspection: normal to inspection and non-distended Palpation: soft, No firm, No guarding and No tender Back/Spine/Pelvis Back: No CVA tenderness Skin General: no rashes or lesions noted Course Vital Signs Vital signs: Vital Signs - 8 hr 12/13/22 09:27 Temperature 98.0 F Pulse Rate 88 Respiratory Rate 20 Blood Pressure 160/96 H Pulse Oximetry 100 Oxygen Delivery Method Room Air MDM - Fall MDM Narrative Medical decision making narrative: Patient does have left-sided anterior chest wall discomfort in his lower ribs. No abdominal discomfort. Lungs are clear. No coughing. I have low suspicion for lung injury. Low suspicion for intra-abdominal injury. Had a discussion with him regarding x-rays. Offered x-rays however would not necessarily change management consultant. He agreed with this and we will hold on any x-rays for now. Will discharge patient home with pain control. He was given return precautions. He expressed understanding and agreement. Discharge Plan Departure Patient Disposition: Home Clinical Impression: Contusion of rib on left side Instructions: DI for Rib Contusion Activity Restrictions/Additional Instructions: You can use the pain medication as needed. Be sure that you are occasionally taking deep breaths. Contact your primary doctor for follow-up. Return to the emergency department for new or worsening symptoms. Prescriptions: New hydrocodone-acetaminophen 5-325 mg tablet 1 tab PO Q4-6H PRN (Reason: pain) Qty: 10 0RF No Action Vitamin B-12 See Rx Instructions .ROUTE .COMPLEX Patient Comments: Take 1 tablet by mouth once daily. Rx Instructions: Take 1 tablet by mouth once daily. Vitamin D3 See Rx Instructions .ROUTE .COMPLEX Patient Comments: Take 1 tablet by mouth daily. Rx Instructions: Take 1 tablet by mouth daily. Calcium See Rx Instructions .ROUTE .COMPLEX Patient Comments: 1 Tab PO QDAY Rx Instructions: 1 Tab PO QDAY Tums 750 mg See Rx Instructions .ROUTE .COMPLEX Patient Comments: 2 Chewable tablets PRN Rx Instructions: 2 Chewable tablets PRN Voltaren Gel 1% See Rx Instructions .ROUTE .COMPLEX Patient Comments: Apply 4 grams up to 4 times a day to right and/or left knee as needed for pain. Rx Instructions: Apply 4 grams up to 4 times a day to right and/or left knee as needed for pain. Multivitamin See Rx Instructions .ROUTE .COMPLEX Patient Comments: 1 tab PO QDAY Rx Instructions: 1 tab PO QDAY Therapy Dog See Rx Instructions .ROUTE .COMPLEX Patient Comments: Patient may have a therapy dog in his apartment. Rx Instructions: Patient may have a therapy dog in his apartment. Metamucil See Rx Instructions .ROUTE .COMPLEX Patient Comments: 1 to 2 capsule PO QDAY Rx Instructions: 1 to 2 capsule PO QDAY (DME) Blood Pressure Cuff Misc See Rx Instructions .Route Qty: 1 0RF Rx Instructions: As directed (DME) Compression stockings See Rx Instructions .Route .MEDSUPPLY Qty: 1 0RF Rx Instructions: As directed doxycycline monohydrate 100 mg capsule 100 mg PO BID Qty: 20 6RF clindamycin phosphate 1 % solution 1 applic TOP BID PRN (Reason: rash) Qty: 30 0RF omeprazole 20 mg capsule,delayed release(DR/EC) See Rx Instructions .ROUTE .COMPLEX Qty: 180 0RF Dose Instruction: TAKE 1 CAPSULE BY MOUTH TWICE DAILY NEEDED FOR NSAID USE IN BARIATRIC SURGERY PATIENT Rx Instructions: TAKE 1 CAPSULE BY MOUTH TWICE DAILY NEEDED FOR NSAID USE IN BARIATRIC SURGERY PATIENT ketoconazole 2 % shampoo See Rx Instructions .ROUTE .COMPLEX Qty: 120 2RF Dose Instruction: APPLY TOPICALLY 2 TIMES A WEEK Rx Instructions: APPLY TOPICALLY 2 TIMES A WEEK potassium chloride 10 mEq capsule, extended release See Rx Instructions .ROUTE .COMPLEX Qty: 90 1RF Dose Instruction: TAKE 1 CAPSULE BY MOUTH DAILY Rx Instructions: TAKE 1 CAPSULE BY MOUTH DAILY cetirizine 10 mg tablet 10 mg PO DAILY Qty: 90 1RF hydrochlorothiazide 25 mg tablet See Rx Instructions .ROUTE .COMPLEX Qty: 90 3RF Dose Instruction: TAKE ONE TABLET ONCE DAILY WITH LISINOPRIL FOR HIGH BLOOD PRESSURE Rx Instructions: TAKE ONE TABLET ONCE DAILY WITH LISINOPRIL FOR HIGH BLOOD PRESSURE ibuprofen 800 mg tablet 800 mg PO BID PRN (Reason: pain) Qty: 180 1RF (DME) Disabled Parking See Rx Instructions .ROUTE .MEDSUPPLY Qty: 1 0RF Rx Instructions: I find this patient to be medically disabled and qualified for Disabled Parking as indicated, and signed, on the Accompanying Disabled Parking Application for Individuals clindamycin phosphate 1 % gel 1 applic topical BID Qty: 30 0RF Referrals: Meeta Restrepo MD [Primary Care Provider] - Stand Alone Forms: Patient Portal/API
== END 2022-12-13 09:55 | disposition home or self-care (01) ==
PROVIDERS: Emergency Provider Emergency Medicine; PCP Family Medicine
DX: S20.212A Contusion of left front wall of thorax, initial encounter (principal)
CPT/HCPCS: 99281

== ENCOUNTER 2023-02-27 06:11 | Emergency (ER) | payer OTHER, MEDICARE, SELFPAY ==
[2023-02-27 06:15] VITALS: BP 164/101; PULSE 94; RESP 16; TEMP 36.6; O2SAT 100; BMI 40.3
--- NOTE | 2023-02-27 07:04 | ED.SKABFB ---
HPI - Skin/Abscess/Foreign Bdy General Chief complaint: Skin/Abscess/Foreign Body Stated complaint: abscess under left arm Time Seen by Provider: 02/27/23 06:42 Source: patient Mode of arrival: Ambulatory Limitations: no limitations History of Present Illness HPI narrative: 37-year-old gentleman with a history of hypertension reflux and episodes of sebaceous cysts presents complaining of an abscess developing in his left axilla. He currently is on doxycycline and using topical clindamycin but is finding that it is getting larger and it is difficult to drive because it is so tender any time he moves his arm. He has no surrounding erythema, no fevers no chest pain and no other complaints Related Data Home Medications Medication Instructions Recorded Confirmed Calcium See Rx Instructions .Route .COMPLEX 11/03/17 02/17/23 Metamucil See Rx Instructions .Route .COMPLEX 11/03/17 02/17/23 Multivitamin See Rx Instructions .Route .COMPLEX 11/03/17 02/17/23 Therapy Dog See Rx Instructions .Route .COMPLEX 11/03/17 02/17/23 Tums 750 mg See Rx Instructions .Route .COMPLEX 11/03/17 02/17/23 Vitamin B-12 See Rx Instructions .Route .COMPLEX 11/03/17 02/17/23 Vitamin D3 See Rx Instructions .Route .COMPLEX 11/03/17 02/17/23 Voltaren Gel 1% See Rx Instructions .Route .COMPLEX 11/03/17 02/17/23 Previous Rx's Medication Instructions Recorded doxycycline monohydrate 100 mg 100 mg PO BID #20 caps 06/08/22 capsule omeprazole 20 mg capsule,delayed See Rx Instructions .Route 06/14/22 release .COMPLEX #180 caps Compression stockings #1 ea 07/21/22 miscellaneous medical supply #1 ea 07/21/22 (Blood Pressure Cuff) cetirizine 10 mg tablet 10 mg PO DAILY #90 tabs 08/10/22 hydrochlorothiazide 25 mg tablet See Rx Instructions .Route 08/17/22 .COMPLEX #90 tabs ibuprofen 800 mg tablet 800 mg PO BID PRN pain #180 tabs 09/01/22 Disabled Parking #1 ea 09/29/22 hydrocodone 5 mg-acetaminophen 325 1 tab PO Q4-6H PRN pain #10 tabs 12/13/22 mg tablet potassium chloride 10 mEq See Rx Instructions .Route 01/03/23 capsule,extended release .COMPLEX #90 caps clindamycin phosphate 1 % topical 1 applic topical BID #30 grams 02/18/23 gel clindamycin phosphate 1 % topical 1 applic topical BID PRN rash #30 02/18/23 solution mL ketoconazole 2 % shampoo 1 applic topical 2XW #120 mL 02/18/23 Allergies Allergy/AdvReac Type Severity Reaction Status Date / Time banana [BANANA] Allergy Severe DIFFICULTY Verified 02/17/23 15:00 BREATHING Cephalosporins Allergy Severe STOPPED Verified 02/17/23 15:00 [CEPHALOSPORINS] BREATHING NSAIDS (Non-Steroidal AdvReac Severe Has had Verified 02/17/23 15:00 Anti-Inflamma Bariatric [NSAIDS (NON-STEROIDAL Surgery ANTI-INFLAMMA] Review of Systems Review of Systems Narrative: Pertinent positive and negative findings as per HPI Patient History Medical History Diarrhea Hypertension (Unknown) Knee pain, left (Unknown) Sleep apnea (Unknown) Vitamin D deficiency (Unknown) Surgical History History of gastric bypass Social History Smoking Status: Former smoker Tobacco: How many years used: 1 second hand exposure: No alcohol intake: current (Once a week maybe) substance use type: does not use Smoking Status: Former smoker alcohol intake frequency: holidays/special occasions only Substance Use Type: does not use Exam Initial Vital Signs Initial Vital Signs: Vital Signs Temperature 97.9 F 02/27/23 06:15 Pulse Rate 94 H 02/27/23 06:15 Respiratory Rate 16 02/27/23 06:15 Blood Pressure 164/101 H 02/27/23 06:15 Pulse Oximetry 100 02/27/23 06:15 Oxygen Delivery Method Room Air 02/27/23 06:15 General: Alert appropriate in no acute distress Respiratory: Able to speak in full sentences, no obvious respiratory distress Skin: No obvious rashes, warm and dry Neurologic: Grossly intact no obvious asymmetries or abnormalities Psych: appropriate insight and affect, cooperative Left axilla is examined. He has a 6 x 6 area of induration with a 2 x 3 cm area of central abscess, 2 small pores are beginning to drain there is no surrounding erythema Procedures Abscess I/D Left axilla: Time of procedure: 07:08 Site: other (Axilla) Side (if applicable): left Local Anesthetic: lidocaine 2% and with epi Amount of anesthesia used (mL): 4 Technique: incised with #11 blade Amount of fluid expressed (mL): 15 Irrigation: Yes Packing used?: none Complications: other (No complications but large amount of sebum was extruded consistent with an infected sebaceous cyst) Course Vital Signs Vital signs: Vital Signs - 8 hr 02/27/23 06:15 Temperature 97.9 F Pulse Rate 94 H Respiratory Rate 16 Blood Pressure 164/101 H Pulse Oximetry 100 Oxygen Delivery Method Room Air MDM - Skin/Abscess/Foreign Bdy MDM Narrative Medical decision making narrative: Otherwise healthy 37-year-old gentleman comes in complaining of left axillary pain. He is currently on doxycycline and topical clindamycin. He has had sebaceous cyst that become infected in the past. He does not have a history of hidradenitis suppurativa. On exam he has a large indurated area with central abscess the left axilla. A 2 cm incision is made centrally after adequate anesthesia with large amount of non smelling purulent material and serum returning. The central cavity is irrigated. There is still quite a bit of induration but does not appear to be any additional pockets of abscess. He tolerated the procedure well. There is no sign of cellulitis or other infection. Packing is placed and will ask him to remove it at approximately 3 days. We will ask him to continue taking his doxycycline he has not least 7 days left and now that this is draining that is entirely appropriate. Culture has been sent. Patient is feeling much better after the abscess has drained. Questions are answered and he is safe for discharge Discharge Plan Departure Patient Disposition: Home Clinical Impression: Infected sebaceous cyst Instructions: DI for Skin Abscess Activity Restrictions/Additional Instructions: Thank you for coming in today This was in fact an infected sebaceous cyst. With the drainage today, all of the sebum from the cyst was easily removed. There was quite a bit of purulence as well. This does not appear to be an infection deep into the tissue, likely because you are already on antibiotics. The doxycycline your currently taking continues to be the best choice. I did culture the discharge today and if antibiotics change is indicated we will give you a call. I did place some packing into the wound. Please try to leave the packing in place until approximately March 02. At that time, you can simply pull out all of the packing material while you were in the shower. If you find that you are getting worse or develop any new symptoms, please feel free to return to the emergency department for further evaluation. Prescriptions: No Action Vitamin B-12 See Rx Instructions .ROUTE .COMPLEX Patient Comments: Take 1 tablet by mouth once daily. Rx Instructions: Take 1 tablet by mouth once daily. Vitamin D3 See Rx Instructions .ROUTE .COMPLEX Patient Comments: Take 1 tablet by mouth daily. Rx Instructions: Take 1 tablet by mouth daily. Calcium See Rx Instructions .ROUTE .COMPLEX Patient Comments: 1 Tab PO QDAY Rx Instructions: 1 Tab PO QDAY Tums 750 mg See Rx Instructions .ROUTE .COMPLEX Patient Comments: 2 Chewable tablets PRN Rx Instructions: 2 Chewable tablets PRN Voltaren Gel 1% See Rx Instructions .ROUTE .COMPLEX Patient Comments: Apply 4 grams up to 4 times a day to right and/or left knee as needed for pain. Rx Instructions: Apply 4 grams up to 4 times a day to right and/or left knee as needed for pain. Multivitamin See Rx Instructions .ROUTE .COMPLEX Patient Comments: 1 tab PO QDAY Rx Instructions: 1 tab PO QDAY Therapy Dog See Rx Instructions .ROUTE .COMPLEX Patient Comments: Patient may have a therapy dog in his apartment. Rx Instructions: Patient may have a therapy dog in his apartment. Metamucil See Rx Instructions .ROUTE .COMPLEX Patient Comments: 1 to 2 capsule PO QDAY Rx Instructions: 1 to 2 capsule PO QDAY (DME) Blood Pressure Cuff Misc See Rx Instructions .Route Qty: 1 0RF Rx Instructions: As directed (DME) Compression stockings See Rx Instructions .Route .MEDSUPPLY Qty: 1 0RF Rx Instructions: As directed doxycycline monohydrate 100 mg capsule 100 mg PO BID Qty: 20 6RF omeprazole 20 mg capsule,delayed release(DR/EC) See Rx Instructions .ROUTE .COMPLEX Qty: 180 0RF Dose Instruction: TAKE 1 CAPSULE BY MOUTH TWICE DAILY NEEDED FOR NSAID USE IN BARIATRIC SURGERY PATIENT Rx Instructions: TAKE 1 CAPSULE BY MOUTH TWICE DAILY NEEDED FOR NSAID USE IN BARIATRIC SURGERY PATIENT cetirizine 10 mg tablet 10 mg PO DAILY Qty: 90 1RF hydrochlorothiazide 25 mg tablet See Rx Instructions .ROUTE .COMPLEX Qty: 90 3RF Dose Instruction: TAKE ONE TABLET ONCE DAILY WITH LISINOPRIL FOR HIGH BLOOD PRESSURE Rx Instructions: TAKE ONE TABLET ONCE DAILY WITH LISINOPRIL FOR HIGH BLOOD PRESSURE ibuprofen 800 mg tablet 800 mg PO BID PRN (Reason: pain) Qty: 180 1RF (DME) Disabled Parking See Rx Instructions .ROUTE .MEDSUPPLY Qty: 1 0RF Rx Instructions: I find this patient to be medically disabled and qualified for Disabled Parking as indicated, and signed, on the Accompanying Disabled Parking Application for Individuals potassium chloride 10 mEq capsule, extended release See Rx Instructions .ROUTE .COMPLEX Qty: 90 1RF Dose Instruction: TAKE 1 CAPSULE BY MOUTH DAILY Rx Instructions: TAKE 1 CAPSULE BY MOUTH DAILY ketoconazole 2 % shampoo 1 applic topical 2XW Qty: 120 0RF clindamycin phosphate 1 % solution 1 applic topical BID PRN (Reason: rash) Qty: 30 0RF clindamycin phosphate 1 % gel 1 applic topical BID Qty: 30 0RF hydrocodone-acetaminophen 5-325 mg tablet 1 tab PO Q4-6H PRN (Reason: pain) Qty: 10 0RF Referrals: Meeta Restrepo MD [Primary Care Provider] - Stand Alone Forms: Patient Portal/API
[2023-02-27] MEDS: LIDOCAINE 2% W/EPI INJ 20 ML (07:05)
[2023-02-27 07:30] VITALS: PULSE 99; RESP 18; O2SAT 100
== END 2023-02-27 07:30 | disposition home or self-care (01) ==
PROVIDERS: Emergency Provider Emergency Medicine; PCP Family Medicine
DX: L72.3 Sebaceous cyst (principal)
CPT/HCPCS: 10060; 87070; 87147; 87205; 99281; 99283

== ENCOUNTER 2023-04-23 11:10 | Emergency (ER) | payer OTHER, MEDICARE, SELFPAY ==
[2023-04-23 11:20] VITALS: BP 162/94; PULSE 98; RESP 16; TEMP 36.7; O2SAT 99; BMI 40.3
--- NOTE | 2023-04-23 11:23 | DI.RAD.S_ITS ---
PROCEDURE: XR KNEE LT 3V INDICATIONS: knee gave out, pain TECHNIQUE: 3 views of the knee were acquired. COMPARISON: [facility] [place], CR, XR KNEE ARTHRITIC SERIES LT, 12/31/2019, 10:35. [facility], ALDO, XR KNEE RT 3V, 01/20/2021, 10:28. FINDINGS: Bones: No fractures or dislocations. No suspicious bony lesions. Moderate joint space narrowing with remodeling articular surfaces. Large suprapatellar joint effusion Soft tissues: No joint effusion. No suspicious soft tissue calcifications. 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 on 04/23/2023 at 12:31
--- NOTE | 2023-04-23 11:24 | DI.RAD.S_ITS ---
PROCEDURE: XR RIBS RT MIN 3V W CXR 1V INDICATIONS: fall onto stairs TECHNIQUE: 2 views of the ribs were acquired, along with a single view chest. COMPARISON: None. FINDINGS: Surgical changes and devices: None. Bones and chest wall: No fractures or dislocations. No suspicious bony lesions. Overlying soft tissues appear unremarkable. Lungs and pleura: No pleural effusions or pneumothorax. Lungs appear clear. Mediastinum: Mediastinal contours appear normal. Heart size is normal. IMPRESSION: No displaced rib fracture or pneumothorax. Approved by: Daniel Woodruff M.D. on 04/23/2023 at 12:20
--- NOTE | 2023-04-23 13:22 | ED_ITS ---
HPI - Fall <Claudia Gonzalez PA-C - Last Filed: 04/23/23 15:24> General Chief Complaint: Fall Stated Complaint: pain rt side rib area,pain L knee can't put weight Time Seen by Provider: 04/23/23 11:35 Source: patient and family Mode of arrival: Wheelchair History of Present Illness HPI Narrative: Patient is a 37 year male with a history of gastric bypass surgery who presents with left knee and right lower rib pain after a fall earlier today. He reports carrying a full laundry basket from the garage up the stairs into their house when his left knee buckled and gave out and he fell against the railing of the stairs with his right ribs. He reports a long history of knee problems, describes himself as bow legged and has an upcoming referral to a knee specialist. He did not take any medicine or tried any therapy after the injury. He is unable to bear weight on the left knee. He endorses pain of 6/10 at rest and 20/10 with movement. He endorses pain with deep inspiration. He denies chest pain, shortness of breath or difficulty breathing. Related Data Home Medications Medication Instructions Recorded Confirmed Calcium See Rx Instructions .Route .COMPLEX 11/03/17 04/02/23 Metamucil See Rx Instructions .Route .COMPLEX 11/03/17 04/02/23 Multivitamin See Rx Instructions .Route .COMPLEX 11/03/17 04/02/23 Therapy Dog See Rx Instructions .Route .COMPLEX 11/03/17 04/02/23 Tums 750 mg See Rx Instructions .Route .COMPLEX 11/03/17 04/02/23 Vitamin B-12 See Rx Instructions .Route .COMPLEX 11/03/17 04/02/23 Vitamin D3 See Rx Instructions .Route .COMPLEX 11/03/17 04/02/23 Voltaren Gel 1% See Rx Instructions .Route .COMPLEX 11/03/17 04/02/23 Previous Rx's Medication Instructions Recorded omeprazole 20 mg capsule,delayed See Rx Instructions .Route 06/14/22 release .COMPLEX #180 caps Compression stockings #1 ea 07/21/22 miscellaneous medical supply #1 ea 07/21/22 (Blood Pressure Cuff) cetirizine 10 mg tablet 10 mg PO DAILY #90 tabs 08/10/22 hydrochlorothiazide 25 mg tablet See Rx Instructions .Route 08/17/22 .COMPLEX #90 tabs Disabled Parking #1 ea 09/29/22 hydrocodone 5 mg-acetaminophen 325 1 tab PO Q4-6H PRN pain #10 tabs 12/13/22 mg tablet potassium chloride 10 mEq See Rx Instructions .Route 01/03/23 capsule,extended release .COMPLEX #90 caps clindamycin phosphate 1 % topical 1 applic topical BID PRN rash #30 02/18/23 solution mL doxycycline hyclate 100 mg tablet 100 mg PO BID #10 tabs 02/28/23 ibuprofen 800 mg tablet 800 mg PO BID PRN pain #180 tabs 03/03/23 sulfamethoxazole 800 1 tab PO BID #14 tabs 03/03/23 mg-trimethoprim 160 mg tablet (Bactrim DS) clindamycin phosphate 1 % topical 1 applic topical BID #30 grams 04/13/23 gel ketoconazole 2 % shampoo 1 applic topical 2XW #120 mL 04/13/23 hydrocodone 5 mg-acetaminophen 325 1 tab PO TID PRN pain #10 tabs 04/23/23 mg tablet Allergies Allergy/AdvReac Type Severity Reaction Status Date / Time banana [BANANA] Allergy Severe DIFFICULTY Verified 04/23/23 11:20 BREATHING Cephalosporins Allergy Severe STOPPED Verified 04/23/23 11:20 [CEPHALOSPORINS] BREATHING NSAIDS (Non-Steroidal AdvReac Severe Has had Verified 04/23/23 11:20 Anti-Inflamma Bariatric [NSAIDS (NON-STEROIDAL Surgery ANTI-INFLAMMA] Review of Systems <Claudia Gonzalez PA-C - Last Filed: 04/23/23 15:24> Review of Systems ROS Unobtainable: All systems reviewed & are unremarkable except as noted in HPI and below Patient History <Claudia Gonzalez PA-C - Last Filed: 04/23/23 15:24> Medical History Diarrhea Vitamin D deficiency (Unknown) Knee pain, left (Unknown) Hypertension (Unknown) Sleep apnea (Unknown) Surgical History History of gastric bypass Social History Smoking Status: Former smoker Tobacco: How many years used: 1 second hand exposure: No alcohol intake: current (Once a week maybe) substance use type: does not use Smoking Status: Former smoker alcohol intake frequency: holidays/special occasions only Substance Use Type: does not use Exam <Claudia Gonzalez PA-C - Last Filed: 04/23/23 15:24> Narrative Exam Narrative: GENERAL: 37 year old patient appears stated age. Well-developed patient, in mild distress. NEURO: AOx3. HEAD: Atraumatic. Normocephalic. EYES: Pupils equal round and reactive. Extraocular motions intact. No scleral icterus. No injection or drainage. ENT: Nose without bleeding or purulent drainage. Airway patent. CARDIOVASCULAR: Regular rate and rhythm without murmurs, gallops, or rubs. RESPIRATORY: Clear to auscultation. Breath sounds equal bilaterally. No wheezes, rales, or rhonchi. Tender to palpation over the right low ribs at the mid- axillary line. EXTREMITIES: No appreciable edema of the left knee when compared to the right. Patient describes pain with any movement of the knee. He is able to flex and extend his foot and has good circulation and capillary refill in the left foot. He is able to extend the knee but is quite painful. SKIN: No rash or erythema of visible areas Initial Vital Signs Initial Vital Signs: Vital Signs Temperature 98.1 F 04/23/23 11:20 Pulse Rate 98 H 04/23/23 11:20 Respiratory Rate 16 04/23/23 11:20 Blood Pressure 162/94 H 04/23/23 11:20 Pulse Oximetry 99 04/23/23 11:20 Oxygen Delivery Method Room Air 04/23/23 11:20 <Rosanna Richards MD - Last Filed: 04/23/23 15:44> Initial Vital Signs Initial Vital Signs: Vital Signs Temperature 98.1 F 04/23/23 11:20 Pulse Rate 98 H 04/23/23 11:20 Respiratory Rate 16 04/23/23 11:20 Blood Pressure 162/94 H 04/23/23 11:20 Pulse Oximetry 99 04/23/23 11:20 Oxygen Delivery Method Room Air 04/23/23 11:20 Course <Claudia Gonzalez PA-C - Last Filed: 04/23/23 15:24> Orders Ordered: ED Orders 04/23/23 11:23 XR knee LT 3V Stat 04/23/23 11:24 XR ribs RT min 3V w CXR1V Stat Discontinued Medications Ketorolac Tromethamine (Ketorolac 30 Mg/Ml Vial) 30 mg IM NOW ONE Stop: 04/23/23 13:10 Last Admin: 04/23/23 13:24 Dose: 30 mg Documented By: SB Vital Signs Vital signs: Vital Signs - 8 hr 04/23/23 11:20 04/23/23 13:59 Temperature 98.1 F 97.8 F Pulse Rate 98 H 88 Respiratory Rate 16 20 Blood Pressure 162/94 H 177/111 H Pulse Oximetry 99 98 Oxygen Delivery Method Room Air Room Air <Rosanna Richards MD - Last Filed: 04/23/23 15:44> Orders Ordered: ED Orders 04/23/23 11:23 XR knee LT 3V Stat 04/23/23 11:24 XR ribs RT min 3V w CXR1V Stat Discontinued Medications Ketorolac Tromethamine (Ketorolac 30 Mg/Ml Vial) 30 mg IM NOW ONE Stop: 04/23/23 13:10 Last Admin: 04/23/23 13:24 Dose: 30 mg Documented By: SB Vital Signs Vital signs: Vital Signs - 8 hr 04/23/23 11:20 04/23/23 13:59 Temperature 98.1 F 97.8 F Pulse Rate 98 H 88 Respiratory Rate 16 20 Blood Pressure 162/94 H 177/111 H Pulse Oximetry 99 98 Oxygen Delivery Method Room Air Room Air MDM - Fall <Claudia Gonzalez PA-C - Last Filed: 04/23/23 15:24> Imaging Data Chest x-ray: Radiologist's Impression: PROCEDURE: XR RIBS RT MIN 3V W CXR 1V INDICATIONS: fall onto stairs TECHNIQUE: 2 views of the ribs were acquired, along with a single view chest. COMPARISON: None. FINDINGS: Surgical changes and devices: None. Bones and chest wall: No fractures or dislocations. No suspicious bony lesions. Overlying soft tissues appear unremarkable. Lungs and pleura: No pleural effusions or pneumothorax. Lungs appear clear. Mediastinum: Mediastinal contours appear normal. Heart size is normal. IMPRESSION: No displaced rib fracture or pneumothorax. Approved by: Daniel Woodruff M.D. on 04/23/2023 at 12:20 Extremity x-ray #1: Radiologist's Impression: PROCEDURE: XR KNEE LT 3V INDICATIONS: knee gave out, pain TECHNIQUE: 3 views of the knee were acquired. COMPARISON: [facility], CR, XR KNEE ARTHRITIC SERIES LT, 12/31/2019, 10:35. [facility], CR, XR KNEE RT 3V, 01/20/2021, 10:28. FINDINGS: Bones: No fractures or dislocations. No suspicious bony lesions. Moderate joint space narrowing with remodeling articular surfaces. Large suprapatellar joint effusio n Soft tissues: No joint effusion. No suspicious soft tissue calcifications. 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 on 04/23/2023 at 12:31 MDM Narrative Medical decision making narrative: Multiple etiologies for patient's symptoms considered including, but not limited to: Rib fracture, rib contusion, pneumothorax, soft tissue injury, left knee dislocation, fracture, soft tissue derangement. There is no evidence of rib fracture or pneumothorax on x-ray. Discussed pain control of suspected rib contusion with Tylenol and ibuprofen, ice and heat. We will give incentive spirometer to encourage patient to take deep breaths as he is currently experiencing pain with deep inspiration. No evidence of bony fracture or abnormality on x-ray of the left knee. Suspect soft tissue derangement. Patient placed a knee immobilizer but this did not fit his body habitus well and was uncomfortable. Patient agreeable to an Jurgen wrap and nonweightbearing. Provided with crutches and crutch training in the emergency room. Instructed to follow up with Orthopedics for reassessment later this week. Return precautions advised. Short course of pain medication given for severe pain not controlled by oral NSAIDs or Tylenol. Patient's symptoms improved over duration of stay with above-stated therapies. Findings and discharge diagnosis discussed with patient/family followed by verbalization of understanding Return precautions discussed with patient/family whom verbalize understanding of diagnosis and plan Discharge Plan Departure Patient Disposition: Home Clinical Impression: Derangement of knee, left Contusion of rib on right side Qualifiers: Encounter type: initial encounter Qualified Code(s): S20.211A - Contusion of right front wall of thorax, initial encounter Instructions: DI for Rib Contusion, How To Perform RICE (Rest, Ice, Compress, Elevate), How to Prevent Falls Activity Restrictions/Additional Instructions: *You have been diagnosed with right rib contusion and left knee soft tissue injury. It is very important to take deep breaths throughout the day in order to prevent pneumonia, when you have this kind of rib injury. You have been provided with an incentive spirometer for this. Please wear the knee immobilizer and remain nonweightbearing on your left knee, using the crutches. Please call orthopedics for follow up appointment next week. I have given you 1 week off of work to rest, ice, elevate your knee. I would suggest taking ibuprofen and Tylenol for pain. I have also prescribed a short course of narcotic medications for severe pain. You have been prescribed a short course of narcotic medications. These are potentially dangerous and addictive medications that should be used carefully. While on these medications you cannot drive or operate heavy machinery. Do not drink alcohol or use other sedative medications while you are taking this medication. Additionally, you cannot sign legal documents or perform any duties such as this. Many people get constipated on narcotic medications so it would be advisable to discuss stool softeners with the pharmacist when you warp picker your prescription. Please understand that we cannot provide further refills of narcotics or controlled substances through the ED and your pain management will need to be through your Primary Care Provider. *What to do: *Please continue to take your regular medications as directed. [x] New medication prescriptions sent to your pharmacy: [ [facility] ] [ ] New medication written as a paper prescription [ ] No new medications given *Please follow up with your primary care provider in 2-3 days, call for an appointment. Let them know you were seen in the Emergency Department and that we ask that you be seen in follow up. We will electronically transmit a record of today's note if your PCP is in our system *If you do not have a primary care provider please contact the [facility] Resource line at [phone]. They will ask some questions about your medical history and help get you set up with a doctor in the community. *Return to Emergency Department if you should have any new, worsening or concerning symptoms, such as [fever greater than 101 F, shaking chills, worsening pain, persistent vomiting or other concerning symptoms]. Prescriptions: New hydrocodone-acetaminophen 5-325 mg tablet 1 tab PO TID PRN (Reason: pain) Qty: 10 0RF Rx Instructions: For severe pain not managed with the Tylenol or ibuprofen. No Action Vitamin B-12 See Rx Instructions .ROUTE .COMPLEX Patient Comments: Take 1 tablet by mouth once daily. Rx Instructions: Take 1 tablet by mouth once daily. Vitamin D3 See Rx Instructions .ROUTE .COMPLEX Patient Comments: Take 1 tablet by mouth daily. Rx Instructions: Take 1 tablet by mouth daily. Calcium See Rx Instructions .ROUTE .COMPLEX Patient Comments: 1 Tab PO QDAY Rx Instructions: 1 Tab PO QDAY Tums 750 mg See Rx Instructions .ROUTE .COMPLEX Patient Comments: 2 Chewable tablets PRN Rx Instructions: 2 Chewable tablets PRN Voltaren Gel 1% See Rx Instructions .ROUTE .COMPLEX Patient Comments: Apply 4 grams up to 4 times a day to right and/or left knee as needed for pain. Rx Instructions: Apply 4 grams up to 4 times a day to right and/or left knee as needed for pain. Multivitamin See Rx Instructions .ROUTE .COMPLEX Patient Comments: 1 tab PO QDAY Rx Instructions: 1 tab PO QDAY Therapy Dog See Rx Instructions .ROUTE .COMPLEX Patient Comments: Patient may have a therapy dog in his apartment. Rx Instructions: Patient may have a therapy dog in his apartment. Metamucil See Rx Instructions .ROUTE .COMPLEX Patient Comments: 1 to 2 capsule PO QDAY Rx Instructions: 1 to 2 capsule PO QDAY (DME) Blood Pressure Cuff Misc See Rx Instructions .Route Qty: 1 0RF Rx Instructions: As directed (DME) Compression stockings See Rx Instructions .Route .MEDSUPPLY Qty: 1 0RF Rx Instructions: As directed omeprazole 20 mg capsule,delayed release(DR/EC) See Rx Instructions .ROUTE .COMPLEX Qty: 180 0RF Dose Instruction: TAKE 1 CAPSULE BY MOUTH TWICE DAILY NEEDED FOR NSAID USE IN BARIATRIC SURGERY PATIENT Rx Instructions: TAKE 1 CAPSULE BY MOUTH TWICE DAILY NEEDED FOR NSAID USE IN BARIATRIC COLLAZO RGERY PATIENT cetirizine 10 mg tablet 10 mg PO DAILY Qty: 90 1RF hydrochlorothiazide 25 mg tablet See Rx Instructions .ROUTE .COMPLEX Qty: 90 3RF Dose Instruction: TAKE ONE TABLET ONCE DAILY WITH LISINOPRIL FOR HIGH BLOOD PRESSURE Rx Instructions: TAKE ONE TABLET ONCE DAILY WITH LISINOPRIL FOR HIGH BLOOD PRESSURE (DME) Disabled Parking See Rx Instructions .ROUTE .MEDSUPPLY Qty: 1 0RF Rx Instructions: I find this patient to be medically disabled and qualified for Disabled Parking as indicated, and signed, on the Accompanying Disabled Parking Application for Individuals potassium chloride 10 mEq capsule, extended release See Rx Instructions .ROUTE .COMPLEX Qty: 90 1RF Dose Instruction: TAKE 1 CAPSULE BY MOUTH DAILY Rx Instructions: TAKE 1 CAPSULE BY MOUTH DAILY clindamycin phosphate 1 % solution 1 applic topical BID PRN (Reason: rash) Qty: 30 0RF doxycycline hyclate 100 mg tablet 100 mg PO BID Qty: 10 0RF ibuprofen 800 mg tablet 800 mg PO BID PRN (Reason: pain) Qty: 180 1RF sulfamethoxazole-trimethoprim [Bactrim DS] 800-160 mg tablet 1 tab PO BID Qty: 14 0RF clindamycin phosphate 1 % gel 1 applic topical BID Qty: 30 0RF ketoconazole 2 % shampoo 1 applic topical 2XW Qty: 120 0RF hydrocodone-acetaminophen 5-325 mg tablet 1 tab PO Q4-6H PRN (Reason: pain) Qty: 10 0RF Referrals: [facility] [Provider Group] Meeta Restrepo MD [Primary Care Provider] - Stand Alone Forms: Patient Portal/API, Work Release Note ED Sign-out <Rosanna Richards MD - Last Filed: 04/23/23 15:44> Cosign ED Attending Cosignature Attestation: I did not see this patient. I was available all times for consultation.
[2023-04-23] MEDS: KETOROLAC 30 MG/ML VIAL IM (13:24)
--- NOTE | 2023-04-23 13:54 | PC.NURSE ---
Patient states not feeling any comfort with knee immobilizer and is requesting to not use it. English MARJORIE present and spoke to patient about this and agreement made on canceling the knee immobilizer.
[2023-04-23 13:59] VITALS: BP 177/111; PULSE 88; RESP 20; TEMP 36.6; O2SAT 98
--- NOTE | 2023-04-23 14:01 | PC.NURSE ---
Nursing re-assessment: Patient reports some comfort after IM Toradol. He is ambulatory with crutches and demonstrates proper use. IS training completed with patient by respiratory therapy. Patient demonstrates proper use of IS. Patient refused knee immobilizer. He is feeling better and comfortable with plan to discharge home.
== END 2023-04-23 14:05 | disposition home or self-care (01) ==
PROVIDERS: Emergency Provider Physician Assistant; PCP Family Medicine
DX: S20.211A Contusion of right front wall of thorax, initial encounter (principal); M23.92 Unspecified internal derangement of left knee; W18.30XA Fall on same level, unspecified, initial encounter
CPT/HCPCS: 71101; 73562; 96372; 99283; 99284; J1885

== ENCOUNTER 2023-08-25 05:13 | Emergency (ER) | payer OTHER, MEDICARE, SELFPAY ==
--- NOTE | 2023-08-25 05:21 | ED.GENADULT ---
HPI - General Adult General Chief complaint: Skin/Abscess/Foreign Body Stated complaint: rt side of face swollen and painful Time Seen by Provider: 08/25/23 05:18 Source: patient Mode of arrival: Ambulatory Limitations: no limitations History of Present Illness HPI narrative: Patient is a 38-year-old male here for evaluation of a painful swollen area to the right side of his face. Has been progressively worsening over the past couple days. He is not having any dental pain. No fevers. He states he has had symptoms like this in the past due to ingrown hairs from his facial hair. He states that normally they rupture and drain on their own. This 1 has become more painful. Related Data Home Medications Medication Instructions Recorded Confirmed Calcium See Rx Instructions .Route .COMPLEX 11/03/17 04/02/23 Metamucil See Rx Instructions .Route .COMPLEX 11/03/17 04/02/23 Multivitamin See Rx Instructions .Route .COMPLEX 11/03/17 04/02/23 Therapy Dog See Rx Instructions .Route .COMPLEX 11/03/17 04/02/23 Tums 750 mg See Rx Instructions .Route .COMPLEX 11/03/17 04/02/23 Vitamin B-12 See Rx Instructions .Route .COMPLEX 11/03/17 04/02/23 Vitamin D3 See Rx Instructions .Route .COMPLEX 11/03/17 04/02/23 Voltaren Gel 1% See Rx Instructions .Route .COMPLEX 11/03/17 04/02/23 Previous Rx's Medication Instructions Recorded omeprazole 20 mg capsule,delayed See Rx Instructions .Route 06/14/22 release .COMPLEX #180 caps Compression stockings #1 ea 07/21/22 miscellaneous medical supply #1 ea 07/21/22 (Blood Pressure Cuff) cetirizine 10 mg tablet 10 mg PO DAILY #90 tabs 08/10/22 Disabled Parking #1 ea 09/29/22 hydrocodone 5 mg-acetaminophen 325 1 tab PO Q4-6H PRN pain #10 tabs 12/13/22 mg tablet potassium chloride 10 mEq See Rx Instructions .Route 01/03/23 capsule,extended release .COMPLEX #90 caps clindamycin phosphate 1 % topical 1 applic topical BID PRN rash #30 02/18/23 solution mL doxycycline hyclate 100 mg tablet 100 mg PO BID #10 tabs 02/28/23 ibuprofen 800 mg tablet 800 mg PO BID PRN pain #180 tabs 03/03/23 sulfamethoxazole 800 1 tab PO BID #14 tabs 03/03/23 mg-trimethoprim 160 mg tablet (Bactrim DS) clindamycin phosphate 1 % topical 1 applic topical BID #30 grams 04/13/23 gel ketoconazole 2 % shampoo 1 applic topical 2XW #120 mL 04/13/23 hydrocodone 5 mg-acetaminophen 325 1 tab PO TID PRN pain #10 tabs 04/23/23 mg tablet hydrochlorothiazide 50 mg tablet 50 mg PO DAILY #90 tabs 05/17/23 doxycycline hyclate 100 mg capsule 100 mg PO BID 10 days #20 caps 08/25/23 Allergies Allergy/AdvReac Type Severity Reaction Status Date / Time banana [BANANA] Allergy Severe DIFFICULTY Verified 04/23/23 11:20 BREATHING Cephalosporins Allergy Severe STOPPED Verified 04/23/23 11:20 [CEPHALOSPORINS] BREATHING NSAIDS (Non-Steroidal AdvReac Severe Has had Verified 04/23/23 11:20 Anti-Inflamma Bariatric [NSAIDS (NON-STEROIDAL Surgery ANTI-INFLAMMA] Review of Systems Constitutional Constitutional: Reports system reviewed and no additional complaints, except as documented Integumentary/Breasts Skin/Breast: Reports system reviewed and no additional complaints, except as documented Neurologic Neurologic: Reports system reviewed and no additional complaints, except as documented Patient History Medical History Diarrhea Vitamin D deficiency (Unknown) Knee pain, left (Unknown) Hypertension (Unknown) Sleep apnea (Unknown) Surgical History History of gastric bypass Social History Smoking Status: Former smoker Tobacco: How many years used: 1 second hand exposure: No alcohol intake: current (Once a week maybe) substance use type: does not use Smoking Status: Former smoker alcohol intake frequency: holidays/special occasions only Substance Use Type: does not use Exam Initial Vital Signs Initial Vital Signs: Vital Signs Temperature 98.2 F 08/25/23 05:24 Pulse Rate 92 H 08/25/23 05:24 Respiratory Rate 18 08/25/23 05:24 Blood Pressure 133/82 06/13/24 05:24 Pulse Oximetry 100 08/25/23 05:24 Oxygen Delivery Method Room Air 08/25/23 05:24 HENMN Mouth: oral mucosae normal Teeth and gingiva: dentition normal Skin Other: Patient with a 2 cm x 2 cm area of induration on his right side of his face along the jaw line. Neuro General: patient alert and patient awake Procedures Abscess I/D I&D #1: Site: face (Right-sided jaw line) Side (if applicable): right Local Anesthetic: lidocaine 1% and with epi Amount of anesthesia used (mL): 5 Technique: incised with #11 blade Irrigation: No Packing used?: none Course Vital Signs Vital signs: Vital Signs - 8 hr 08/25/23 05:24 Temperature 98.2 F Pulse Rate 92 H Respiratory Rate 18 Blood Pressure 133/82 Pulse Oximetry 100 Oxygen Delivery Method Room Air Medical Decision Making MDM Narrative Medical decision making narrative: Bedside ultrasound did show an abscess along right-sided jaw line. No foreign body noted. Incision and drainage was performed as described above after discussion with the patient regarding risks and benefits and options. There was purulent material returned. Will discharge patient home with a written prescription for antibiotics that he can start to take if his symptoms do not improve in the next 24-48 hours although I suspect that they will improve. We did discuss that there can be some continued drainage from the area. Patient was given return precautions. He expressed understanding and agreement. Discharge Plan Departure Patient Disposition: Home Clinical Impression: Abscess of skin and subcutaneous tissue Instructions: DI for Incision and Drainage of a Skin Abscess Activity Restrictions/Additional Instructions: I do expect some drainage from the area over the next 24 hours. You just need to change the bandage was placed here as needed when it becomes soiled. You can shower like normal. Hold on filling the prescription for antibiotics for the next 24-48 hours. Your symptoms should start to improve now that we have drained the abscess here in the ER however if they do not then you can fill the prescription and take it as directed. Return to the emergency department for new symptoms. Prescriptions: New doxycycline hyclate 100 mg capsule 100 mg PO BID 10 Days Qty: 20 0RF No Action Vitamin B-12 See Rx Instructions .ROUTE .COMPLEX Patient Comments: Take 1 tablet by mouth once daily. Rx Instructions: Take 1 tablet by mouth once daily. Vitamin D3 See Rx Instructions .ROUTE .COMPLEX Patient Comments: Take 1 tablet by mouth daily. Rx Instructions: Take 1 tablet by mouth daily. Calcium See Rx Instructions .ROUTE .COMPLEX Patient Comments: 1 Tab PO QDAY Rx Instructions: 1 Tab PO QDAY Tums 750 mg See Rx Instructions .ROUTE .COMPLEX Patient Comments: 2 Chewable tablets PRN Rx Instructions: 2 Chewable tablets PRN Voltaren Gel 1% See Rx Instructions .ROUTE .COMPLEX Patient Comments: Apply 4 grams up to 4 times a day to right and/or left knee as needed for pain. Rx Instructions: Apply 4 grams up to 4 times a day to right and/or left knee as needed for pain. Multivitamin See Rx Instructions .ROUTE .COMPLEX Patient Comments: 1 tab PO QDAY Rx Instructions: 1 tab PO QDAY Therapy Dog See Rx Instructions .ROUTE .COMPLEX Patient Comments: Patient may have a therapy dog in his apartment. Rx Instructions: Patient may have a therapy dog in his apartment. Metamucil See Rx Instructions .ROUTE .COMPLEX Patient Comments: 1 to 2 capsule PO QDAY Rx Instructions: 1 to 2 capsule PO QDAY (DME) Blood Pressure Cuff Misc See Rx Instructions .Route Qty: 1 0RF Rx Instructions: As directed (DME) Compression stockings See Rx Instructions .Route .MEDSUPPLY Qty: 1 0RF Rx Instructions: As directed hydrochlorothiazide 50 mg tablet 50 mg PO DAILY Qty: 90 3RF omeprazole 20 mg capsule,delayed release(DR/EC) See Rx Instructions .ROUTE .COMPLEX Qty: 180 0RF Dose Instruction: TAKE 1 CAPSULE BY MOUTH TWICE DAILY NEEDED FOR NSAID USE IN BARIATRIC SURGERY PATIENT Rx Instructions: TAKE 1 CAPSULE BY MOUTH TWICE DAILY NEEDED FOR NSAID USE IN BARIATRIC SURGERY PATIENT cetirizine 10 mg tablet 10 mg PO DAILY Qty: 90 1RF (DME) Disabled Parking See Rx Instructions .ROUTE .MEDSUPPLY Qty: 1 0RF Rx Instructions: I find this patient to be medically disabled and qualified for Disabled Parking as indicated, and signed, on the Accompanying Disabled Parking Application for Individuals potassium chloride 10 mEq capsule, extended release See Rx Instructions .ROUTE .COMPLEX Qty: 90 1RF Dose Instruction: TAKE 1 CAPSULE BY MOUTH DAILY Rx Instructions: TAKE 1 CAPSULE BY MOUTH DAILY clindamycin phosphate 1 % solution 1 applic topical BID PRN (Reason: rash) Qty: 30 0RF doxycycline hyclate 100 mg tablet 100 mg PO BID Qty: 10 0RF ibuprofen 800 mg tablet 800 mg PO BID PRN (Reason: pain) Qty: 180 1RF sulfamethoxazole-trimethoprim [Bactrim DS] 800-160 mg tablet 1 tab PO BID Qty: 14 0RF clindamycin phosphate 1 % gel 1 applic topical BID Qty: 30 0RF ketoconazole 2 % shampoo 1 applic topical 2XW Qty: 120 0RF hydrocodone-acetaminophen 5-325 mg tablet 1 tab PO Q4-6H PRN (Reason: pain) Qty: 10 0RF hydrocodone-acetaminophen 5-325 mg tablet 1 tab PO TID PRN (Reason: pain) Qty: 10 0RF Rx Instructions: For severe pain not managed with the Tylenol or ibuprofen. Referrals: Meeta Restrepo MD [Primary Care Provider] - Stand Alone Forms: Patient Portal/API, Work Release Note
[2023-08-25 05:24] VITALS: BP 133/82; PULSE 92; RESP 18; TEMP 36.8; O2SAT 100; BMI 40.7
--- NOTE | 2023-08-25 05:28 | PC.NURSE ---
See triage not for further details on pt dermatology history
== END 2023-08-25 05:52 | disposition home or self-care (01) ==
PROVIDERS: Emergency Provider Emergency Medicine; PCP Family Medicine
DX: L02.01 Cutaneous abscess of face (principal)
CPT/HCPCS: 10060; 99281; 99283